=== PATIENT | female | born 1960 | race Caucasian/White ===

== ENCOUNTER 2023-08-10 21:56 | Outpatient (REF) | payer MEDICARE, SELFPAY ==
[2023-08-14 09:08] LABS: Age Gdln ACOG Testing Note (.); HPV Aptima Negative (Negative); IGP, Aptima HPV, rfx 16/18,45 Note (.)
== END 2023-08-10 21:57 | disposition home or self-care (01) ==
LOC: LAB 21:56
PROVIDERS: PCP Family Medicine; Visit Provider Family Medicine
DX: Z01.419 Encounter for gynecological examination (general) (routine) without abnormal findings (principal)
CPT/HCPCS: 87624; G0145

== ENCOUNTER 2024-12-08 09:44 | Outpatient (OUT) | payer MEDICARE, SELFPAY ==
--- NOTE | 2024-12-08 | MM_ITS ---
Patient Name: ZELALEM CAMPBELL MR#: [id number] : 1960 Exam Date: 12/08/2024 Ordering Doctor: DR CLIVE RINCON . RADIOLOGY REPORT PROCEDURE: MM TOMOSYNTHESIS SCREENING BI COMPARISON: MG MAMM SCREEN RUCHI W CAD, 04/25/2019. MG MAMM RUCHI SCRN W CAD DIG, 12/24/2015. INDICATIONS: BREAST CANCER SCREENING Calculator Name NCI Breast Cancer Risk Assessment Tool 5 Year Breast Cancer Risk 1.70% Lifetime Breast Cancer Risk 6.10% Personal Breast Cancer No Personal Ovarian Cancer No Treatments None Family Cancers None LOCATION: [facility] BREAST COMPOSITION: There are scattered areas of fibroglandular density. FINDINGS: DIAGNOSTIC CATEGORY 1--NEGATIVE. RIGHT BREAST: No significant suspicious finding. LEFT BREAST: No significant suspicious finding. RECOMMENDATIONS: ROUTINE MAMMOGRAM AND CLINICAL EVALUATION IN 12 MONTHS. PLEASE NOTE: A NORMAL MAMMOGRAM DOES NOT EXCLUDE THE POSSIBILITY OF BREAST CANCER. A CLINICALLY SUSPICIOUS PALPABLE LUMP SHOULD BE BIOPSIED. Dictated by: Leo Bro DO on 12/15/2024 at 13:57 Approved by: Leo Bro DO on 12/15/2024 at 14:00
--- OUTSIDE RECORDS SUMMARY | 2024-12-08 09:56 | XMS_ITS | CCD ---
Author Organization [facility] Inform ion Partnership [facility] Care Team Providers Care Heel Sander Name Role Phone DR CLIVE RINCON Attending Unavailable MCKENZIE, DR CLIVE Phipps Consulting Unavailable DR CLIVE RINCON Primary Care Unavailable DR CLIVE RINCON Admitting CLIVE Quarles Attending Unavailable CLIVE RINCON Attending Unavailable MCKENZIE, CLIVE Attending Unavailable Clive Rincon MD Primary Care Provider [phone] Allergies Allergy Classification Reported Allergen(s) Allergy Type Date of Onset Reaction(s) Facility (3 sources) Lisinopril Propensity to adverse reactions 4 [facility] Medications Current Medications Medication Drug Class(es) Dates Sig (Normalized) Sig (Original) hydroCHLOROthiazide 25 mg oral tablet (4 sources) Thiazide Diuretic Start: take 1 tablet by mouth once daily hydroCHLOROthiazide (HYDRODiuril) 25 MG tablet Indications: Essential hypertension, benign (CMS/HCC) TAKE 1 TABLET BY MOUTH DAILY 90 tablet 2 03/08/2024 Active Start: 01-05-2024 Hydrochlorothi azide Active MG PO January 05, 2024 12:00am losartan potassium 50 mg oral tablet (4 sources) Angiotensin 2 Receptor Helen Start: 06-08-2024 take 1 tablet by mouth in the morning losartan (Cozaar) 50 MG tablet Indications: Essential hypertension, benign (CMS/HCC) TAKE 1 TABLET BY MOUTH IN THE MORNING 90 tablet 3 06/08/2024 Active Start: 01-05-2024 Losartan Activ e MG PO January 05, 2024 12:00am Problems Problem Classification Problem Date Documented Da te Episodic/Chronic Anxiety disorders (5 sources) Generalized anxiety disorder; Translations: [Generalized anxiety disorder] Onset: 07-13-2023 07-13-2023 Chronic Disorders of lipid metabolism (5 sources) Dyslipidemia; Translations: [Hyperlipidemia, unspecified] Onset: 07-13-2023 07-13-2023 Chronic Essential hypertension (6 sources) Hypertensive disorder; Translations: [Essential (primary) hypertension] Onset: 07-13-2023 01-05-2024 Chronic Other aftercare (5 sources) Long-term current use of drug therapy; Translations: [Other terminal carman (current) drug therapy] Onset: 07-13-2023 07-13-2023 Episodic Other nutritional; endocrine; and metabolic disorders (1 source) Body mass index 30+ - obesity; Translations: [Obesity, unspecified] Onset: 07-13-2023 07-13-2023 Chronic Other nutritional; endocrine; and metabolic disorders (4 sources) Obesity caused by energy imbalance; Translations: [Class 1 obesity due to excess calories with serious comorbidity and body mass index (BMI) of 30.0 to 30.9 in adult] Onset: 07-13-2023 08-08-2024 Chronic Other screening for suspected conditions (not mental disorders or infectious disease) (2 sources) Patient encounter status; Translations: [Encounter for screening mammogram for malignant neoplasm of breast] 08-08-2024 Episodic Results Test Name Value Interpretation Reference Range Facil ity CBC AUTO DIFFon 12-09-2021 BASO # 0.0 103/ul Normal 0.0-0.1 [facility] Comment on above: Performed By: #### C BC #### [facility] [address] [address] [address] Leah Cross Basophils/100 WBC (Bld) 0.6 % Normal 0.2-2.0 [facility] Comment on above: Performed By: #### C BC #### [facility] [address] [address] [address] Leah Cross EO # 0.1 103/ul Normal 0.0-0.7 [facility] Comment on above: Performed By: #### C BC #### [facility] [address] [address] [address] Leah Cross Eosinophils/100 WBC (Bld) 1.1 % Normal 0.9-7.0 [facility] Comment on above: Performed By: #### C BC #### [facility] [address] [place] [address] Dr. Leah Cross Erythrocyte distribution width (RBC) [Ratio] 12.2 % Normal 11.0-15.0 [facility] Comment on above: Performed By: #### C BC #### [facility] [address] [place] [address] Dr. Leah Cross Hematocrit (Bld) [Volume fraction] 44.8 % Normal 36.0-48.0 [facility] Comment on above: Performed By: #### C BC #### [facility] [address] [place] [address] Dr. Leah Cross Hemoglobin (Bld) [Mass/Vol] 14.6 g/dL Normal 12.0-16.0 [facility] Comment on above: Performed By: #### C BC #### [facility] [address] [place] [address] Dr. Leah Cross IG # 0.02 10e3/ul Normal 0.00-0.03 [facility] Comment on above: Performed By: #### C BC #### [facility] [address] [place] [address] Dr. Leah Cross IG % 0.3 % Normal 0.0-0.5 [facility] Comment on above: Performed By: #### C BC #### [facility] [address] [place] [address] Dr. Leah Cross LYMPH # 2.5 103/ul Normal 1.2-3.8 [facility] Comment on above: Performed By: #### C BC #### [facility] [address] [place] [address] Dr. Leah Cross Lymphocytes/100 WBC (Bld) 35.2 % Normal 20.5-60.0 [facility] Comment on above: Performed By: #### C BC #### [facility] [address] [place] [address] Dr. Leah Cross MANUAL DIFF REQ NO Normal [facility] Comment on above: Performed By: #### C BC #### [facility] [address] [place] [address] Dr. Leah Cross MCH (RBC) [Entitic mass] 28.1 pg Normal 26.7-34.0 [facility] Comment on above: Performed By: #### C BC #### [facility] [address] [place] [address] Dr. Leah Cross MCHC (RBC) [Mass/Vol] 32.6 g/dL Normal 29.9-35.2 [facility] Comment on above: Performed By: #### C BC #### [facility] [address] [place] [address] Dr. Leah Cross MCV (RBC) [Entitic vol] 86.2 fL Normal 81.0-99.0 [facility] Comment on above: Performed By: #### C BC #### [facility] [address] [place] [address] Dr. Leah Cross MONO # 0.7 103/ul Normal 0.3-0.8 [facility] Comment on above: Performed By: #### C BC #### [facility] [address] [place] [address] Dr. Leah Cross Monocytes/100 WBC (Bld) 9.3 % Normal 1.7-12.0 [facility] Comment on above: Performed By: #### C BC #### [facility] [address] [place] [address] Dr. Leah Cross NEUT # 3.8 103/ul Normal 1.4-6.5 [facility] Comment on above: Performed By: #### C BC #### [facility] [address] [place] [address] Dr. Leah Cross Neutrophils/100 WBC (Bld) 53.5 % Normal 43.0-75.0 [facility] Comment on above: Performed By: #### C BC #### [facility] [address] [place] [address] Dr. Leah Cross Platelet mean volume (Bld) [Entitic vol] 9.6 fL Normal 9.5-13.5 [facility] Comment on above: Performed By: #### C BC #### [facility] [address] [place] [address] Dr. Leah Cross PLT 350 103/ul Normal 150-450 [facility] Comment on above: Performed By: #### C BC #### [facility] [address] [place] [address] Dr. Leah Cross RBC 5.20 106/ul Normal 4.20-5.40 [facility] Comment on above: Performed By: #### C BC #### [facility] [address] [address] [address] Leah Cross WBC 7.0 103/ul Normal 4.0-11.0 [facility] Comment on above: Performed By: #### C BC #### [facility] [address] [place] [address] Dr. Leah Cross GLYCOHEMOGLOBIN A1Con 2021 ADA RECOMMENDATION SEE BELOW Normal [facility] Comment on above: Result Comment: ADA RECOMMENDED LIMIT 4.0 - 6.0 ADA THERAPEUTIC TARGET < 7.0 ACTION SUGGESTED > 7.0 Performed By: #### A 1C #### [facility] [address] [place] [address] Dr. Leah Cross Glucose [Mass/Vol] 114 mg/dL Normal [facility] Comment on above: Performed By: #### A 1C #### [facility] [address] [place] [address] Dr. Leah Cross HbA1c (Bld) [Mass fraction] 5.6 % Normal 4.5-6.2 [facility] Comment on above: Performed By: #### A 1C #### [facility] [address] [place] [address] Dr. Leah Cross LIPID PROFILEon 12-09-2021 CHOL-HDL RATIO NORM SEE BELOW Normal [facility] Comment on above: Result Comment: 3.3 - 4.4 LOW RISK 4.4 - 7.1 AVERAGE RISK 7.1 - 11.0 MODERATE RISK >11.0 HIGH RISK Performed By: #### L IVER, LIPID, BMP, TSH #### [facility] [address] [place] [address] Dr. Leah Cross Cholesterol [Mass/Vol] 212 mg/dL Critically high <=200 [facility] Comment on above: Performed By: #### L IVER, LIPID, BMP, TSH #### [facility] [address] [address] [address] Leah Cross Cholesterol in HDL [Mass/Vol] 43 mg/dL Normal 40-60 [facility] Comment on above: Performed By: #### L IVER, LIPID, BMP, TSH #### [facility] [address] [address] [address] Leah Cross Cholesterol in LDL [Mass/Vol] 125.4 mg/dL Normal [facility] Comment on above: Performed By: #### L IVER, LIPID, BMP, TSH #### [facility] [address] [address] [address] Leah Cross Cholesterol.total/Cho lesterol in HDL [Mass ratio] 4.9 {ratio} Normal [facility] Comment on above: Performed By: #### L IVER, LIPID, BMP, TSH #### [facility] [address] [address] [address] Leah Cross HDL NORMAL > or = 60 mg/dl - LOW CARDIOVASCULAR RISK <40 mg/dl - HIGH CARDIOVASCULAR RISK Normal [facility] Comment on above: Performed By: #### L IVER, LIPID, BMP, TSH #### [facility] [address] [address] [address] Leah Cross LDL CALC NORMAL SEE BELOW Normal [facility] Comment on above: Result Comment: <100 mg/dl OPTIMAL 100 - 129 mg/dl NEAR OR ABOVE OPTIMAL 130 - 159 mg/dl BORDERLINE HIGH 160 - 189 mg/dl HIGH >190 mg/dl VERY HIGH Performed By: #### L IVER, LIPID, BMP, TSH #### [facility] [address] [address] [address] Leah Cross Triglyceride [Mass/Vol] 218 mg/dL Critically high <=150 [facility] Comment on above: Performed By: #### L IVER, LIPID, BMP, TSH #### [facility] [address] [address] [address] Leah Cross VLDL CALC 43.6 mg/dL Normal [facility] Comment on above: Performed By: #### L IVER, LIPID, BMP, TSH #### [facility] [address] [place] [address] Dr. Leah Cross LIVER PROFILEon 12-09-2021 Albumin [Mass/Vol] 3.6 g/dL Normal 3.4-5.0 [facility] Comment on above: Performed By: #### L IVER, LIPID, BMP, TSH #### [facility] [address] [place] [address] Dr. Leah Cross Albumin/Globulin [Mass ratio] 0.8 {ratio} Normal [facility] Comment on above: Performed By: #### L IVER, LIPID, BMP, TSH #### [facility] [address] [place] [address] Dr. Leah Cross ALP [Catalytic activity/Vol] 69 U/L Normal 46-116 [facility] Comment on above: Performed By: #### L IVER, LIPID, BMP, TSH #### [facility] [address] [place] [address] Dr. Leah Cross ALT [Catalytic activity/Vol] 25 U/L Normal 14-59 [facility] Comment on above: Performed By: #### L IVER, LIPID, BMP, TSH #### [facility] [address] [place] [address] Dr. Leah Cross AST [Catalytic activity/Vol] 26 U/L Normal 15-37 [facility] Comment on above: Performed By: #### L IVER, LIPID, BMP, TSH #### [facility] [address] [place] [address] Dr. Leah Cross BILI, CONJUGATED 0.1 mg/dL Normal 0.0-0.2 [facility] Comment on above: Performed By: #### L IVER, LIPID, BMP, TSH #### [facility] [address] [place] [address] Dr. Leah Cross Bilirubin [Mass/Vol] 0.4 mg/dL Normal 0.2-1.0 [facility] Comment on above: Performed By: #### L IVER, LIPID, BMP, TSH #### [facility] [address] [place] [address] Dr. Leah Cross Globulin (S) [Mass/Vol] 4.4 g/dL Normal [facility] Comment on above: Performed By: #### L IVER, LIPID, BMP, TSH #### [facility] [address] [place] [address] Dr. Leah Cross Protein [Mass/Vol] 8.0 g/dL Normal 6.4-8.2 [facility] Comment on above: Performed By: #### L IVER, LIPID, BMP, TSH #### [facility] [address] [place] [address] Dr. Leah Cross PROF CHEM 8 (BAS METB)on Anion gap [Moles/Vol] 8.7 mmol/L Normal [facility] Comment on above: Performed By: #### L IVER, LIPID, BMP, TSH #### [facility] [address] [place] [address] Dr. Leah Cross Calcium [Mass/Vol] 9.3 mg/dL Normal 8.5-10.1 [facility] Comment on above: Performed By: #### L IVER, LIPID, BMP, TSH #### [facility] [address] [place] [address] Dr. Leah Cross Chloride [Moles/Vol] 97 mmol/L Critically low 98-107 [facility] Comment on above: Performed By: #### L IVER, LIPID, BMP, TSH #### [facility] [address] [place] [address] Dr. Leah Cross CO2 [Moles/Vol] 33.9 mmol/L Critically high 21.0-32.0 [facility] Comment on above: Performed By: #### L IVER, LIPID, BMP, TSH #### [facility] [address] [place] [address] Dr. Leah Cross Creatinine [Mass/Vol] 0.85 mg/dL Normal 0.55-1.02 [facility] Comment on above: Performed By: #### L IVER, LIPID, BMP, TSH #### [facility] [address] [address] [address] Leah Cross EGFR-AF GABONESE >60 Normal >=60 [facility] Comment on above: Performed By: #### L IVER, LIPID, BMP, TSH #### [facility] [address] [address] [address] Leah Cross EGFR-NON AF GABONESE >60 Normal >=60 [facility] Comment on above: Performed By: #### L IVER, LIPID, BMP, TSH #### [facility] [address] [address] [address] Leah Cross Glucose [Mass/Vol] 98 mg/dL Normal 74-106 [facility] Comment on above: Performed By: #### L IVER, LIPID, BMP, TSH #### [facility] [address] [place] [address] Dr. Leah Cross Potassium [Moles/Vol] 3.6 mmol/L Normal 3.5-5.1 [facility] Comment on above: Performed By: #### L IVER, LIPID, BMP, TSH #### [facility] [address] [address] [address] Leah Cross Sodium [Moles/Vol] 136 mmol/L Normal 136-145 [facility] Comment on above: Performed By: #### L IVER, LIPID, BMP, TSH #### [facility] [address] [address] [address] Leah Cross Urea nitrogen [Mass/Vol] 19.0 mg/dL Critically high 7.0-18.0 [facility] Comment on above: Performed By: #### L IVER, LIPID, BMP, TSH #### [facility] [address] [place] [address] Dr. Leah Cross Urea nitrogen/Creatinine [Mass ratio] 22.4 mg/mg Normal [facility] Comment on above: Performed By: #### L IVER, LIPID, BMP, TSH #### [facility] [address] [place] [address] Dr. Leah Cross TSHon 12-09-2021 TSH 0.984 uIU/mL Normal 0.358-3.740 [facility] Comment on above: Performed By: #### L IVER, LIPID, BMP, TSH #### [facility] [address] [address] [address] Leah Cross Vital Signs Date Time Vital Sign Value Performing Clinician Facility 08-08-2024 09:08-0500 Body height 167.6 cm Clive Rincon MD Work Phone: [facility] 08-08-2024 09:08-0500 Body mass index (BMI) [Ratio] 30.02 kg/m2 Clive Rincon MD Work Phone: [facility] 08-08-2024 09:08-0500 Body temperature 97.11 [degF] Clive Rincon MD Work Phone: [facility] 08-08-2024 09:08-0500 Body weight 84.37 kg Clive Rincon MD Work Phone: [facility] 08-08-2024 09:08-0500 Diastolic blood pressure 60 mm[Hg] Clive Rincon MD Work Phone: [facility] 08-08-2024 09:08-0500 Heart rate 96 /min Clive Rincon MD Work Phone: [facility] 08-08-2024 09:08-0500 Respiratory rate 20 /min Clive Rincon MD Work Phone: [facility] 08-08-2024 09:08-0500 SaO2% (BldA) [Mass fraction] 92 % Clive Rincon MD Work Phone: [facility] 08-08-2024 09:08-0500 Systolic blood pressure 106 mm[Hg] Clive Rincon MD Work Phone: [facility] 01-05-2024 18:30-0400 Body height 167.64 cm [facility] 01-05-2024 18:30-0400 Body mass index (BMI) [Ratio] 29 kg/m2 [facility] 01-05-2024 18:30-0400 Body temperature 98.1 [degF] [facility] 01-05-2024 18:30-0400 Body weight 81.64 kg [facility] 01-05-2024 18:30-0400 Diastolic blood pressure 100 mm[Hg] [facility] 01-05-2024 18:30-0400 Heart rate 97 /min [facility] 01-05-2024 18:30-0400 Respiratory rate 16 /min [facility] 01-05-2024 18:30-0400 SaO2% (BldA) [Mass fraction] 96 % [facility] 01-05-2024 18:30-0400 Systolic blood pressure 154 mm[Hg] [facility] Encounters Encounter Date Encounter Type Care Provider Facility Start: 08-08-2024 End: 08-08-2024 Muna Rincon MD Work Phone: [facility] Start: 08-08-2024 End: 08-08-2024 Muna Rincon MD Work Phone: [facility] Start: 08-08-2024 End: 08-08-2024 Office outpatient visit 15 minutes Clive Ricnon MD Work Phone: [facility] Comment on above: Essential hypertensi on, benign (CMS/HCC) (Primary Dx); YECENIA (generalized anxiety disorder) (CMS/HCC); Class 1 obesity due to excess calories with serious comorbidity and body mass index (BMI) of 30.0 to 30.9 in adult; Dyslipidemia (CMS/HCC); Encounter for long-term (current) use of medications; Breast cancer screening by mammogram Start: 08-08-2024 End: 08-08-2024 ambulatory CLIVE RINCON Not Available Start: 02-03-2024 End: 02-03-2024 ambulatory CLIVE RINCON Not Available Start: 01-05-2024 End: 01-05-2024 ambulatory [facility] Work Phone: Start: 01-05-2024 End: 01-05-2024 Patient encounter procedure [facility] Work Phone: Start: 08-10-2023 Manual pelvic examination Clive Rincon MD Work Phone: [facility] Start: 08-10-2023 End: 08-10-2023 ambulatory CLIVE RINCON Not Available Start: 12-11-2021 Encounter for genera l adult medical examination without abnormal findings DR CLIVE RINCON [facility] Start: 12-09-2021 End: 12-10-[address] CLIVE RINCON Facility:[facility] Start: 12-09-2021 End: 12-10-2021 Encounter for general adult medical examination without abnormal findings DR CLIVE RINCON Facility:[facility] Procedures Date Procedure Procedure Detail Performing Clinician Start: 07-26-2023 Mammography Clive garay MD Work Phone: Plan of Treatment Date Care Activity Detail Author Start: 07-19-2026 Screening for malign ant neoplasm of colon [facility] Start: 02-06-2025 End: 02-06-2025 Patient encounter procedure 02/06/2025 9:00 AM EDT Office Visit [facility] [address] [place] [id number] Clive Rincon MD [address] [place] [id number] [facility] Start: 08-08-2024 End: 08-08-2025 Basic metabolic 1998 panel - Serum or Plasma Basic metabolic panel Lab Routine Essential hypertension, benign (CMS/HCC) Expected: 08/08/2024 (Approximate), Expires: 08/08/2025 [facility] Work Phone: Comment on above: Expected: 08/08/2024 (Approximate), Expires: 08/08/2025 Start: 08-08-2024 End: 08-08-2025 CBC W Auto Differential panel - Blood CBC and differential Lab Routine Encounter for long-term (current) use of medications Expected: 08/08/2024 (Approximate), Expires: 08/08/2025 [facility] Comment on above: Expected: 08/08/2024 (Approximate), Expires: 08/08/2025 Start: 08-08-2024 End: 08-08-2025 Hepatic function 2000 panel - Serum or Plasma Hepatic function panel Lab Routine Encounter for long-term (current) use of medications Expected: 08/08/2024 (Approximate), Expires: 08/08/2025 [facility] Comment on above: Expected: 08/08/2024 (Approximate), Expires: 08/08/2025 Start: 08-08-2024 End: 08-08-2025 Lipid 1996 panel - Serum or Plasma Lipid panel Lab Routine Dyslipidemia (CMS/HCC) Expected: 08/08/2024 (Approximate), Expires: 08/08/2025 [facility] Comment on above: Expected: 08/08/2024 (Approximate), Expires: 08/08/2025 Start: 08-08-2024 End: 10-06-2025 MG Breast - bilateral Screening Bilateral screening mammogram Imaging Routine Breast cancer screening by mammogram Expected: 08/08/2024, Expires: 10/06/2025 [facility] Comment on above: Expected: 08/08/2024 , Expires: 10/06/2025 Start: 08-08-2024 End: 08-08-2025 Thyrotropin [Units/volume] in Serum or Plasma TSH Lab Routine Class 1 obesity due to excess calories with serious comorbidity and body mass index (BMI) of 30.0 to 30.9 in adult Expected: 08/08/2024 (Approximate), Expires: 08/08/2025 [facility] Comment on above: Expected: 08/08/2024 (Approximate), Expires: 08/08/2025 Start: 08-08-2024 End: 08-08-2024 Patient encounter procedure 08/08/2024 9:00 AM EST Office Visit [facility] [address] [place] [id number] Clive Rincon MD [address] [place] [id number] Arrived [facility] Comment on above: Arrived Start: 07-26-2024 Screening for malign ant neoplasm of breast Mammogram [facility] Start: 02-20-2024 Influenza vaccination Influenza Vacc ine (#1) [facility] Start: 2023 Pneumococcal Vaccine : 65+ Years (1 of 1 - PCV) Pneumococcal Vaccine: 65+ Years (1 of 1 - PCV) [facility] Start: 1960 Medicare Annual Wellness (AWV) Medicare Annual Wellness (AWV) [facility] Start: 1960 Screening for malign ant neoplasm of colon [facility] Payers Date Payer Category Payer Medicaid [employer] MED[employer]ARE A DVANTAGE [id number] 2023 Private Health Insurance [id number] 1961 Unknown [id number] 1960 Unknown [id number] 1960 Unknown [id number] 1960 Unknown [id number] 1960 Unknown [id number] Social History Date Type Detail Facility Tobacco smoking stat us KYIS Unknown if ever smoked [facility] Work Phone: Start: 1960 Sex Assigned At Female [facility] Start: 07-13-2023 Tobacco smoking status NHIS Never smoked tobacco [facility] Start: 07-13-2023 Tobacco use and exposure Smokeless tobacco non-user [facility] Start: 07-06-2023 End: 08-08-2024 History of Social function [facility] Start: 07-06-2023 End: 08-08-2024 [id number] Health Literacy [facility] How often do you nee d to have someone help you when you read instructions, pamphlets, or other written material from your doctor or pharmacy [SILS] Never [facility] Within the last year , have you been afraid of your partner or ex-partner? No [facility] Are you now , , , , never or living with a partner? [facility] How often to you hav e a drink containing alcohol? Never [facility] Do you feel stress - tense, restless, nervous, or anxious, or unable to sleep at night because your mind is troubled all the time - these days [OSQ] Only a little [facility] (I/We) worried wheth er (my/our) food would run out before (I/we) got money to buy more. Never true [facility] Start: 08-03-2023 Gender identity Identifies as female gender (finding) [facility] Start: 08-03-2023 Sexual orientation Heterosexual (finding) [facility] History of Present illness Narrative 08-08-2024 Clive Rincon MD - 08/08/2024 9:27 AM Kelby Rincon MD - 08/08/2024 9:26 AM Kelby Rincon MD - 08/08/2024 9:26 AM Kelby Rincon MD - 08/08/2024 9:00 AM EST Note Date & Type Note Facility 08-08-2024 History of Presen t illness Narrative Associated Problem(s): YECENIA (generalized anxiety disorder) (CMS/HCC) Doing well without medication and monitor. Associated Problem(s): Essential hypertension, benign (CMS/HCC) BP controlled and monitor PRN. Associated Problem(s): Class 1 obesity due to excess calories with serious comorbidity and body mass index (BMI) of 30.0 to 30.9 in adult Weight loss indicated. Images from the original note were not included. Subjective Patient ID: Cassie Meng is a 64 y.o. female who presents for Follow-up (6m). Follow up HTN and anxiety. Checking BP PRN and typically controlled. BP normal today. Taking medication daily and tolerating without side effects. Anxiety stable. Not as stressed out or overwhelmed. Not as nervous or worry as much. Not as walker or irritable. Weight up 5 pounds in past year. Not as active at work and no regular exercise or activity. Due for labs and mammogram. Review of Systems Respiratory: Negative for cough, shortness of breath and wheezing. Cardiovascular: Negative for chest pain and palpitations. Gastrointestinal: Negative for abdominal pain, diarrhea, nausea and vomiting. Genitourinary: Negative for dysuria. Objective Physical Exam Constitutional: General: She is not in acute distress. Appearance: Normal appearance. HENT: Head: Normocephalic. Right Ear: Tympanic membrane normal. Left Ear: Tympanic membrane normal. Eyes: Extraocular Movements: Extraocular movements intact. Pupils: Pupils are equal, round, and reactive to light. Cardiovascular: Rate and Rhythm: Normal rate and regular rhythm. Heart sounds: No murmur heard. No friction rub. No gallop. Pulmonary: Effort: Pulmonary effort is normal. Breath sounds: Normal breath sounds. No wheezing, rhonchi or rales. Abdominal: General: Bowel sounds are normal. There is no distension. Palpations: Abdomen is soft. Tenderness: There is no abdominal tenderness. There is no guarding or rebound. Musculoskeletal: Cervical back: Neck supple. Right lower leg: No edema. Left lower leg: No edema. Neurological: Mental Status: She is alert. Assessment/Plan Problem List Items Addressed This Visit Essential hypertension, benign (CMS/HCC) - Primary BP controlled and monitor PRN. Relevant Orders Basic metabolic panel Dyslipidemia (CMS/HCC) Relevant Orders Lipid panel YECENIA (generalized anxiety disorder) (CMS/HCC) Doing well without medication and monitor. Encounter for long-term (current) use of medications Relevant Orders CBC and differential Hepatic function panel Class 1 obesity due to excess calories with serious comorbidity and body mass index (BMI) of 30.0 to 30.9 in adult Weight loss indicated. Relevant Orders TSH Other Visit Diagnoses Breast cancer screening by mammogram Relevant Orders Bilateral screening mammogram documented in this encounter [facility] Evaluation note Note Date & Type Note Facility Evaluation note No assessment information availa [facility] Work Phone: Evaluation note Note Date & Type Note Facility Evaluation note Diagnosis Essential hypertension, benign (CMS/HCC)- Primary Essential hypertension, benign YECENIA (generalized anxiety disorder) (CMS/HCC) Generalized anxiety disorder Dyslipidemia (CMS/HCC) Other and unspecified hyperlipidemia Encounter for long-term (current) use of medications Encounter for long-term (current) use of other medications Obesity (BMI 30-39.9) Breast cancer screening by mammogram Essential hypertension, benign (CMS/HCC)- Primary Essential hypertension, benign Encounter for cervical Pap smear with pelvic exam Essential hypertension, benign (CMS/HCC)- Primary Essential hypertension, benign YECENIA (generalized anxiety disorder) (CMS/HCC) Generalized anxiety disorder Essential hypertension, benign (CMS/HCC)- Primary Essential hypertension, benign YECENIA (generalized anxiety disorder) (CMS/HCC) Generalized anxiety disorder Class 1 obesity due to excess calories with serious comorbidity and body mass index (BMI) of 30.0 to 30.9 in adult Dyslipidemia (CMS/HCC) Other and unspecified hyperlipidemia Encounter for long-term (current) use of medications Encounter for long-term (current) use of other medications Breast cancer screening by mammogram documented in this encounter [facility] Summary Purpose Family History No Family History Records FoundNo Family History Records Found Advance Directives Advance Directive Response Recorded Date/ Time Advance Directives No January 04 6:21pm Chief Complaint and Reason for Visit Chief Complaint Cyst/abscess on back /shoulder Additional Source Comments INFORMATION SOURCE (unrecogn ized section and content) DATE CREATED AUTHOR 01/17/2022 [facility] DATE CREATED AUTHOR 'S ORGANIZ ATION 08/09/2024 [facility] Care Teams (unrecognized sec tion and content) Team Status: Active Member Role Status Dates Clive Rincon MD Primary Care Provider Active Team Status: Inactive Member Role Status Dates Clive Rincon MD Primary Care Provider Active S tart: January 05, 2024 End: January 05, 2024 Fina Wilkins APRN Attending Provider Active Start: January 05, 2024 End: January 05, 2024 Heel Sander Relationship Specialty Start Date End Date Clive Rincon MD [address] [place] [address] PCP - General Family Medicine 08/10/23 Heel Sander Relationship Specialty Start Date End Date Clive Rincon MD [address] [place] [address] PCP - General Family Medicine 08/10/23 Goals (unrecognized section and content) Goals may be documented in a n alternate section Reason for Visit (unrecogniz ed section and content) Reason Comments Follow-up 6m FOR RECORDS PERTAINING TO PATIENTS WHO ARE OR HAVE BEEN ENROLLED IN A CHEMICAL DEPENDENCY/SUBSTANCEABUSE PROGRAM, SOME INFORMATION MAY BE OMITTED. This clinical summary was aggregated from multiple sources. Caution should be exercised in using it in the provision of clinical care. This summary normalizes information from multiple sources, and as a consequence, information in this document may materially change the coding, format and clinical context of patient data. In addition, data may be omitted in some cases. CLINICAL DECISIONS SHOULD BE BASED ON THE PRIMARY CLINICAL RECORDS. [facility] [employer] [facility]. provides no warranty or guarantee of the accuracy or completeness of information in this document.
[2024-12-08 10:37] LABS: Basophils Percent Auto 0.5 % (0.2-2.0); Eosinophils Absolute Auto 0.1 10^3/uL (0.0-0.7); Eosinophils Percent Auto 1.5 % (0.9-7.0); Hematocrit 42.2 % (36.0-48.0); Hemoglobin 13.9 g/dL (12.0-16.0); Immature Granulocytes Abs Auto 0.02 10^3/uL (0.00-0.03); Immature Granulocytes Pct Auto 0.3 % (0.0-0.5); Lymphocytes Absolute Auto 1.8 10^3/uL (1.2-3.8); Lymphocytes Percent Auto 23.5 % (20.5-60.0); Mean Corpuscular HGB Conc 32.9 g/dL (29.9-35.2); Mean Corpuscular Volume 82.1 fL (81.0-99.0); Mean Platelet Volume 9.1 fL (9.5-13.5); Monocytes Absolute Auto 0.7 10^3/uL (0.3-0.8); Monocytes Percent Auto 8.5 % (1.7-12.0); Neutrophils Absolute Auto 5.1 10^3/uL (1.4-6.5); Neutrophils Percent Auto 65.7 % (43.0-75.0); Platelet Count 431 10^3/uL (150-450); Red Blood Count 5.14 10^6/uL (4.20-5.40); Red Cell Distribution Width 13.4 % (11.0-15.0); White Blood Count 7.8 10^3/uL (4.0-11.0)
[2024-12-08 11:06] LABS: Alanine Aminotransferase 22 U/L (14-59); Albumin Globulin Ratio 0.8; Albumin Level 3.6 g/dL (3.4-5.0); Alkaline Phosphatase 75 U/L (46-116); Anion Gap 8.8; Aspartate Amino Transferase 20 U/L (15-37); Bilirubin Direct 0.1 mg/dL (0.0-0.2); Bilirubin Total 0.4 mg/dL (0.2-1.0); Calcium 9.4 mg/dL (8.5-10.1); Carbon Dioxide 34.4 mmol/L (21.0-32.0); Chloride 98 mmol/L (98-107); Chol HDL Ratio 3.9; Cholesterol 226 mg/dL (<=200); Estimated GFR (African America >60 (>=60 mL/min/1.73m^2); Estimated GFR (Non-African Ame >60 (>=60 mL/min/1.73m^2); Globulin 4.6 g/dL; Glucose 122 mg/dL (74-106); HDL Cholesterol 58 mg/dL (40-60); Potassium 3.2 mmol/L (3.5-5.1); Sodium 138 mmol/L (136-145); Thyroid Stimulating Hormone 1.659 uIU/mL (0.358-3.740); Total Protein 8.2 g/dL (6.4-8.2); Triglycerides 156 mg/dL (<=150); VLDL CHOLESTEROL 31.2 mg/dL
== END 2024-12-08 09:45 | disposition home or self-care (01) ==
LOC: MAMMO 09:48
PROVIDERS: PCP Family Medicine; Visit Provider Family Medicine
DX: Z12.31 Encounter for screening mammogram for malignant neoplasm of breast (principal); E78.5 Hyperlipidemia, unspecified; I10 Essential (primary) hypertension; E66.811 Obesity, class 1; E66.09 Other obesity due to excess calories; Z68.30 Body mass index [BMI] 30.0-30.9, adult; Z79.899 Other long term (current) drug therapy
CPT/HCPCS: 36415; 77063; 77067; 80048; 80061; 80076; 84443; 85025

== ENCOUNTER 2024-12-08 10:05 | Outpatient (OUT) | payer MEDICARE, SELFPAY ==
--- OUTSIDE RECORDS SUMMARY | 2024-12-11 09:33 | XMS_ITS | Encounter Summary ---
Author Organization [facility] Address [address] [place] [address] Care Team Providers Care Toilet Products Molder Name Role Phone Napoleon Alegre MD Primary Care Provider [phone] Encounter Details Date Type Department Care Team (Late st Contact Info) Description 12/08/2024 Results Follow-Up [facility] [address] [place] [address] Napoleon Alegre MD [address] [address] Prediabetes (Primary Dx); Hypokalemia Social History Tobacco Use Types Packs/Day Years Used Date Smoking Tobacco: Never Smokeless Tobacco: Never B1300 Health Literacy Answer Date Recor ded How often do you need to hav e someone help you when you read instructions, pamphlets, or other written material from your doctor or pharmacy? Never 08/08/2024 Humiliation, Afraid, Rape, and Kick questionnair e Answer Date Recorded Within the last year, have y ou been afraid of your partner or ex-partner? No 07/06/2023 Within the last year, have y ou been humiliated or emotionally abused in other ways by your partner or ex-partner? No Within the last year, have y ou been kicked, hit, slapped, or otherwise physically hurt by your partner or ex-partner? No 07/06/2023 Within the last year, have y ou been raped or forced to have any kind of sexual activity by your partner or ex-partner? No 07/06/2023 Social Connection and Isolat ion Panel [NHANES] Answer Date Recorded In a typical week, how many times do you talk on the phone with family, friends, or neighbors? More than three times a week 08/08/2024 How often do you get togethe r with friends or relatives? More than three times a week 08/08/2024 How often do you attend chur or quaker services? More than 4 times per year 08/08/2024 Do you belong to any clubs o r organizations such as cheondoism groups, unions, fraternal or athletic groups, or school groups? No 08/08/2024 How often do you attend meet ings of the clubs or organizations you belong to? Never 08/08/2024 Are you , , di vorced, , never , or living with a partner? 08/08/2024 AUDIT-C Answer Date Recorded Q1: How often do you have a drink containing alcohol? Never 08/08/2024 Q2: How many drinks containi ng alcohol do you have on a typical day when you are drinking? Patient does not drink Q3: How often do you have si x or more drinks on one occasion? Never 08/08/2024 Overall Financial Resource Strain (CARDIA) Answe r Date Recorded How hard is it for you to pa y for the very basics like food, housing, medical care, and heating? Not hard at all 08/08/2024 [facility] - Occupational Stress Questionnaire Answer Date Recorded Do you feel stress - tense, restless, nervous, or anxious, or unable to sleep at night because your mind is troubled all the time - these days? Only a little 08/08/2024 Exercise Vital Sign Answer Date Recorde d On average, how many days pe r week do you engage in moderate to strenuous exercise (like a brisk walk)? 5 days 08/08/2024 On average, how many minutes do you engage in exercise at this level? 30 min 08/08/2024 Hunger Vital Sign Answer Date Recorded Within the past 12 months, y ou worried that your food would run out before you got the money to buy more. Never true 08/08/19 25 Within the past 12 months, t he food you bought just didn't last and you didn't have money to get more. Never true 08/08/2024 PRAPARE - Transportation Answer Date Re corded In the past 12 months, has l ack of transportation kept you from medical appointments or from getting medications? No 07/22 In the past 12 months, has l ack of transportation kept you from meetings, work, or from getting things needed for daily living? No 08/08/2024 Housing Stability Vital Sign Answer Gilbert e Recorded In the last 12 months, was t here a time when you were not able to pay the mortgage or rent on time? No 07/06/2023 In the last 12 months, how many places have you lived? 1 07/06/2023 In the last 12 months, was t here a time when you did not have a steady place to sleep or slept in a skilled nursing (including now)? No 07/06/2023 Housing Stability Vital Sign Answer Gilbert e Recorded In the last 12 months, was t here a time when you were not able to pay the mortgage or rent on time? No 08/08/2024 In the past 12 months, how m any times have you moved where you were living? 0 08/08/2024 At any time in the past 12 m [facility], were you homeless or living in a skilled nursing (including now)? No 08/08/2024 Comments Unknown Sex and Gender Information Value Date Recorded Sex Assigned at Female 08/03/2023 10:50 AM EST Legal Sex Female 7:04 PM EDT Gender Identity Female 08/03/2023 10:50 AM EST Sexual Orientation Straight 08/03/2023 10 :50 AM EST documented as of this encounter Plan of Treatment Upcoming Encounters Date Type Department Care Team (Late st Contact Info) Description 02/06/2025 9:00 AM EDT Office Visit [facility] [address] [place] [address] Napoleon Alegre MD [address] [place] [address] Scheduled Orders Name Type Priority Associated Diagnoses Orde r Schedule Hemoglobin A1c Lab Routine Prediabetes Expected: 12/08/2024 (Approximate), Expires: 12/08/2025 documented as of this encounter Visit Diagnoses Diagnosis Prediabetes- Primary Other abnormal glucose Hypokalemia Hypopotassemia documented in this encounter Care Teams Toilet Products Molder Relationship Specialty Start Date End Date Napoleon Alegre MD [address] [place] [address] PCP - General Family Medicine 08/10/23 documented as of this encounter
--- OUTSIDE RECORDS SUMMARY | 2024-12-11 09:33 | XMS_ITS | Clinical Summary ---
Author Organization [facility] Healthcare Address [address] [place] [address] Care Team Providers Care Wind Turbine Design Engineer Name Role Phone Napoleon Alegre MD Primary Care Provider [phone] Allergies Active Allergy Reactions Criticality Noted Date Comments Lisinopril 07/06/2023 Medications losartan (Cozaar) 50 MG tabletIndicati ons:Essential hypertension, benign TAKE 1 TABLET BY MOUTH IN THE MORNING 90 tablet 3 4 Active hydroCHLOROthi azide (HYDRODiuril) 25 MG tabletIndicati ons:Essential hypertension, benign TAKE 1 TABLET BY MOUTH DAILY 90 tablet 2 5 Active potassium chloride CR (K-Tab) 20 MEQ ER tabletIndicati ons:Hypokalemi a Take 1 tablet (20 mEq) by mouth Daily Do not crush, chew, or split. 30 tablet 5 5 Active hydroCHLOROthi azide (HYDRODiuril) 25 MG tabletIndicati ons:Essential hypertension, benign TAKE 1 TABLET BY MOUTH DAILY 90 tablet 2 4 12/05/19 25 Discontinued Active Problems Problem Noted Date Diagnosed Date Prediabetes 12/08/2024 Hypokalemia 12/08/2024 Encounter for cervical Pap smear with pelvic exa m 08/10/2023 Assessment & Plan (08/10/2023 2:30 PM EST): Will notify of results by mail or call with abnormals. Continue monthly self breast exams and yearly mammograms. Recommend balanced diet and regular aerobic activity 30 minutes per day 5-6 days per week. Activity reduces risk of osteoporosis. Ensure adequate calcium and Vit D intake, may need to supplement. Tetanus booster every 10 years. Cologuard normal last month. Avoid excessive sun exposure or tanning beds Essential hypertension, benign 07/13/2023 Assessment & Plan (08/08/2024 9:26 AM EST): BP controlled and monitor PRN. Assessment & Plan (02/03/2024 11:10 AM EDT): BP controlled and monitor PRN. Assessment & Plan (08/10/2023 2:30 PM EST): BP improved and monitor PRN. Assessment & Plan (07/13/2023 4:09 PM EST): BP elevated and increase cozaar. Monitor BP PRN. Dyslipidemia 07/13/2023 YECENIA (generalized anxiety disorder) 07/13/2023 Assessment & Plan (08/08/2024 9:27 AM EST): Doing well without medication and monitor. Assessment & Plan (02/03/2024 11:15 AM EDT): Continued stress but handling well without medication and monitor. Assessment & Plan (07/13/2023 4:09 PM EST): Increased stress but handling well without medication and monitor. Encounter for long-term (current) use of medicat ions 07/13/2023 Class 1 obesity due to exces s calories with serious comorbidity and body mass index (BMI) of 30.0 to 30.9 in adult 07/13/2023 Assessment & Plan (08/08/2024 9:26 AM EST): Weight loss indicated. Encounters Date Type Department Care Team Description 12/08/2024 Results Follow-Up [facility] [address] [place] [id number] Napoleon Alegre MD Prediabetes (Primary Dx); Hypokalemia 12/08/2024 Orders Only [facility] [address] [place] [address] Napoleon Alegre MD 12/08/2024 Clinisync Result Encounter [facility] External Department Unsolicited Napoleon Alegre MD 12/02/2024 Refill [facility] [address] [place] [address] Napoleon Alegre MD Essential hypertension, benign from Last 3 Months Family History Medical History Relation Name Comments Heart disease Father Heart disease Sister Relation Name Status Comments Father Sister Social History Tobacco Use Types Packs/Day Years Used Date Smoking Tobacco: Never Smokeless Tobacco: Never Tobacco Cessation:Counseling Given: Not Answered [id number] Health Literacy Answer Date Recor ded [...] week 08/08/2024 How often do you attend [facility] or restorationist services? More than 4 times per year 08/08/2024 Do you belong to any clubs o r organizations such as taoist groups, unions, fraternal or athletic groups, or [...] and heating? Not hard at all 08/08/2024 [facility] - Occupational Stress [...] place to sleep or slept in a half-way (including now)? No 07/06/2023 Housing Stability Vital Sign Answer Gilbert e Recorded In the last 12 months, was t here a time when you were not able to pay the mortgage or rent on time? No 08/08/2024 In the past 12 months, how m any times have you moved where you were living? 0 08/08/2024 At any time in the past 12 m [facility], were you homeless or living in a half-way (including now)? No 08/08/2024 Comments Unknown Sex and Gender Information Value Date Recorded Sex Assigned at Female 08/03/2023 10:50 AM EST Legal Sex Female 7:04 PM EDT Gender Identity Female 08/03/2023 10:50 AM EST Sexual Orientation Straight 08/03/2023 10 :50 AM EST Last Filed Vital Signs Vital Sign Reading Time Taken Comments Blood Pressure 106/60 08/08/2024 9:08 AM EST Pulse 96 08/08/2024 9:08 AM EST Temperature 36.2 C (97.1 F) 08/08/2024 9:08 AM EST Respiratory Rate 20 08/08/2024 9:08 AM EST Oxygen Saturation 92% 08/08/2024 9:08 AM EST Inhaled Oxygen Concentration - - Weight 84.4 kg (186 lb) 08/08/2024 9:08 AM EST Height 167.6 cm (5' 6 ) 08/08/2024 9:08 AM EST Body Mass Index 30.02 08/08/2024 9:08 AM EST Plan of Treatment Upcoming Encounters Date Type Department Care Team (Late st Contact Info) Description 02/06/2025 9:00 AM EDT Office Visit [facility] [address] [place] [address] Napoleon Alegre MD [address] [place] [address] Health Maintenance Due Date Last Done Comments CT Colonography 1960 Colonoscopy 1958 FIT 1960 FOBT 1960 Medicare Annual Wellness (AWV) 1960 Sigmoidoscopy 1960 Pneumococcal Vaccine: 65+ Ye ars (1 of 1 - PCV) 02/27/2008 Mammogram 07/26/2024 07/26/2023, 07/15/2023 Influenza Vaccine (Season Ended) 2025 Colorectal Cancer Screening 07/19/2026 FIT-DNA 07/19/2026 07/19/2023, 10/31/2019 Procedures Procedure Name Priority Date/Time Associated Diagnosis Comments ALL THYROID STIM HORMONE Routine 12/08/2024 10:25 AM EDT ALL LIPID PROFILE (FASTING) Routine 12/08/2024 10:25 AM EDT ALL BASIC METABOLIC PANEL Routine 12/08/2024 10:25 AM EDT [facility] LIVER PANEL Routine 12/08/2024 10:2 5 AM EDT ALL CBC WITH AUTO DIFF Routine 10:25 AM EDT BI MAMMOGRAM SCREENING TOMOSYNTHESIS BILATERAL Routine 07/15/2023 3:22 PM EST Breast cancer screening by mammogram from Last 3 Months or Most Recently Relevant to Health Maintenance Results * [facility] LIVER PANEL (12/08/2024 10:25 AM EDT) BILIRUBIN TOTAL 0.4 0.2 - 1.0 mg/dL [facility]H BILIRUBIN DIRECT 0.1 0.0 - 0.2 mg/dL [facility] ASPARTATE AMINO TRANSFERASE 20 15 - 37 U/L TBH ALANINE AMINOTRANSFERASE 22 14 - 59 U/L TBH ALKALINE PHOSPHATASE 75 46 - 116 U/L TB[facility] TOTAL PROTEIN 8.2 6.4 - 8.2 g/dL [facility] ALBUMIN LEVEL 3.6 3.4 - 5.0 g/dL [facility] GLOBULIN 4.6 g/dL [facility] ALBUMIN GLOBULIN RATIO 0.8 TBH 12/08/2024 10:2 5 AM EDT 12/08/2024 10:31 AM EDT Narrative CLINISYNC - 12/08/2024 11:09 AM EDT Napoleon ALEJANDROISYNHI Final Result Performing Organization Address [facility]/ZIP Co de Phone Number [facility] * ALL THYROID STIM HORMONE (12/08/2024 10:25 AM EDT) THYROID STIMULATING HORMONE 1.659 0.358 - 3.740 uIU/mL TB 12/08/2024 10:2 5 AM EDT 12/08/2024 10:31 AM EDT Narrative CLINISYNC - 12/08/2024 11:09 AM EDT Napoleon ALEJANDROISYNHI Final Result Performing Organization Address [facility] de Phone Number [facility] * (ABNORMAL) ALL LIPID PROFILE (FASTING) (12/08/2024 10:25 AM EDT) TRIGLYCERIDES 156(H) <=150 mg/dL TBH CHOLESTEROL 226(H) <=200 mg/dL TB HDL CHOLESTEROL 58 40 - 60 mg/dL TB Comment: > or =60 mg/dl - LOW CARDIOVASCULAR RISK <40 mg/dl - HIGH CARDIOVASCULAR RISK LDL CHOLESTEROL CALCULATED 137.0 mg/dL TB Comment: <100 mg/dl OPTIMAL 100-129 mg/dl NEAR OR ABOVE OPTIMAL 130-159 mg/dl BORDERLINE HIGH 160-189 mg/dl HIGH >190 mg/dl VERY HIGH VLDL CHOLESTEROL 31.2 mg/dL TB CHOL HDL RATIO 3.9 TB Comment: 3.3 - 4.4 LOW RISK 4.4 - 7.1 AVERAGE RISK 7.1 - 11.0 MODERATE RISK >11.0 HIGH RISK 12/08/2024 10:2 5 AM EDT 12/08/2024 10:31 AM EDT Narrative CLINISYNC - 12/08/2024 11:09 AM EDT us Napoleon Alegre MD CLINIS[facility]NC Final Result [facility] * (ABNORMAL) ALL CBC WITH AUTO DIFF (12/08/2024 10:25 AM EDT) [facility] TB WBC 7.8 4.0 - 11.0 10 3/uL TBH TBH RBC 5.14 4.20 - 5.40 10 6/uL TBH TBH HGB 13.9 12.0 - 16.0 g/dL TBH TBH HCT 42.2 36.0 - 48.0 % TBH TBH MCV 82.1 81.0 - 99.0 fL TBH TBH MCH 27.0 26.7 - 34.0 pg TBH TBH MCHC 32.9 29.9 - 35.2 g/dL TBH TBH RDW 13.4 11.0 - 15.0 % TBH TBH PLT 431 150 - 450 10 3/uL TBH TBH MPV 9.1(L) 9.5 - 13.5 fL TBH NEUTROPHILS PERCENT AUTO 65.7 43.0 - 75.0 % TBH LYMPHOCYTES PERCENT AUTO 23.5 20.5 - 60.0 % TBH MONOCYTES PERCENT AUTO 8.5 1.7 - 12.0 % TBH TBH EO % 1.5 0.9 - 7.0 % TBH BASOPHILS PERCENT AUTO 0.5 0.2 - 2.0 % TBH IMMATURE GRANULOCYTES PCT AUTO 0.3 0.0 - 0.5 % TBH NEUTROPHILS ABSOLUTE AUTO 5.1 1.4 - 6.5 10 3/uL TBH LYMPHOCYTES ABSOLUTE AUTO 1.8 1.2 - 3.8 10 3/uL TBH MONOCYTES ABSOLUTE AUTO 0.7 0.3 - 0.8 10 3/uL TBH TBH EO # 0.1 0.0 - 0.7 10 3/uL TBH BASOPHILS ABSOLUTE AUTO 0.0 0.0 - 0.1 10 3/uL TBH IMMATURE GRANULOCYTES ABS AUTO 0.02 0.00 - 0.03 10 3/uL TBH 12/08/2024 10:2 5 AM EDT 12/08/2024 10:31 AM EDT Narrative CLINISYNC - 12/08/2024 10:37 AM EDT Napoleon STEWART Final Result Performing Organization Address [facility] Co de Phone Number PAT TB * (ABNORMAL) ALL BASIC METABOLIC PANEL (12/08/2024 10:25 AM EDT) SODIUM 138 136 - 145 mmol/L TBH POTASSIUM 3.2(L) 3.5 - 5.1 mmol/L TBH CHLORIDE 98 98 - 107 mmol/L TBH CARBON DIOXIDE 34.4(H) 21.0 - 32.0 mmol/L TBH ANION GAP 8.8 TBH GLUCOSE 122(H) 74 - 106 mg/dL TBH BLOOD UREA NITROGEN 18.0 7.0 - 18.0 mg/dL TBH CREATININE 0.75 0.55 - 1.02 mg/dL TBH TBH EGFR-AF [place] >60 >=60 mL/min/1.7 3m 2 TBH TBH EGFR-NON AF [place] >60 >=60 mL/min/1.7 3m 2 TBH BUN CREATININE RATIO 24.0 TBH CALCIUM 9.4 8.5 - 10.1 mg/dL TBH 12/08/2024 10:2 5 AM EDT 12/08/2024 10:31 AM EDT Narrative CLINGUANAKITONC - 12/08/2024 11:09 AM EDT Napoleon STEWART Final Result Performing Organization Address City/[facility] de Phone Number PAT TB * Bilateral screening mammogram with tomosynthesis (07/15/2023 3:22 PM EST) Anatomical Region Laterality Modality Breast Bilateral Mammography 07/23/2023 4:29 PM EST Impressions 07/26/2023 7:22 AM EST BIRADS 1 - Negative Follow-up: Routine Screening Mamm Board Certified Radiologists. Accredited by the ACR and FDA. MAMMOGRAPHY IS VERY IMPORTANT TO YOUR HEALTH. THE [place] [employer] GUIDELINES RECOMMEND THAT WOMEN 40 YEARS OF AGE AND OLDER SHOULD HAVE A MAMMOGRAM EVERY YEAR. A REMINDER LETTER WILL BE SENT AT THE APPROPRIATE TIME. THIS FACILITY UTILIZES A REMINDER SYSTEM TO ENSURE ALL PATIENTS RECEIVE REMINDER NOTIFICATIONS AT THE APPROPRIATE TIME BASED ON THE RECOMMENDATIONS OF THIS EXAM. THIS INCLUDES REMINDERS FOR ROUTINE SCREENING MAMMOGRAMS, DIAGNOSTIC MAMMOGRAMS IN WHICH THE PATIENT IS ASKED TO RETURN FOR ADDITIONAL VIEWS, OR OTHER BREAST IMAGING INTERVENTIONS WHEN APPROPRIATE. THE PATIENT WILL BE PLACED IN THE APPROPRIATE REMINDER SYSTEM INCLUDING A REMINDER AT THE APPROPRIATE TIME FOR ANY PENDING ADDITIONAL VIEWS. TRANSCRIBED BY: ELECTRONICALLY SIGNED BY: Leo Ac MD Narrative 07/26/2023 7:22 AM EST EXAMINATION: BI MAMMOGRAM SCREENING TOMOSYNTHESIS BILATERAL CLINICAL HISTORY:Screening COMPARISON: There are no previous mammograms available for comparison. RESULT: Digital mammography and 3D tomosynthesis of bilateral breasts was performed. Density: Scattered fibroglandular density [2] There is no suspicious mass, asymmetry, architectural distortion, or calcification. Procedure Note Leo Ac MD - 07/26/2023 EXAMINATION: BI MAMMOGRAM SCREENING TOMOSYNTHESIS BILATERAL CLINICAL HISTORY:Screening COMPARISON: There are no previous mammograms available for comparison. RESULT: Digital mammography and 3D tomosynthesis of bilateral breasts wasperformed. Density: Scattered fibroglandular density [2] There is no suspicious mass, asymmetry, architectural distortion, orcalcification. IMPRESSION: BIRADS 1 - Negative Follow-up: Routine Screening Mamm Board Certified Radiologists. Accredited by the ACR and FDA. MAMMOGRAPHY IS VERY IMPORTANT TO YOUR HEALTH. THE [place] CANC[employer] SOCIETYGUIDELINES RECOMMEND THAT WOMEN 40 YEARS OF AGE AND OLDER SHOULD HAVE AMAMMOGRAM EVERY YEAR. A REMINDER LETTER WILL BE SENT AT THE APPROPRIATE TIME. THIS FACILITYUTILIZES A REMINDER SYSTEM TO ENSURE ALL PATIENTS RECEIVE REMINDERNOTIFICATIONS AT THE APPROPRIATE TIME BASED ON THE RECOMMENDATIONS OF THISEXAM. THIS INCLUDES REMINDERS FOR ROUTINE SCREENING MAMMOGRAMS, DIAGNOSTICMAMMOGRAMS IN WHICH THE PATIENT IS ASKED TO RETURN FOR ADDITIONAL VIEWS,OR OTHER BREAST IMAGING INTERVENTIONS WHEN APPROPRIATE. THE PATIENT WILLBE PLACED IN THE APPROPRIATE REMINDER SYSTEM INCLUDING A REMINDER AT THEAPPROPRIATE TIME FOR ANY PENDING ADDITIONAL VIEWS. TRANSCRIBED BY: ELECTRONICALLY SIGNED BY: Leo Ac MD Napoleon Alegre MD IMG BI PROCEDURES Final Result from Last 3 Months or Most Recently Relevant to Health Maintenance Insurance [employer] MEDICARE [employer]VANTAGE Care Teams Wind Turbine Design Engineer Relationship Specialty Start Date End Date Napoleon Alegre MD [address] [place] [address] PCP - General Family Medicine 08/10/23
--- OUTSIDE RECORDS SUMMARY | 2024-12-11 09:33 | XMS_ITS | Encounter Summary ---
Author Organization [facility] Address [address] [place] [address] Care Team Providers Care Test Center Manager Name Role Phone Napoleon Alegre MD Primary Care Provider [phone] Encounter Details Date Type Department Care Team (Late st Contact Info) Description 12/08/2024 Clinisync Result Encounter [facility] External Department Unsolicited Napoleon Alegre MD [address] [place] [address] Social History Tobacco Use Types Packs/Day Years [...] 08/08/2024 How often do you attend chur ch or holiness services? More than 4 times per year 08/08/2024 Do you belong to any clubs o r organizations such as restoration groups, unions, fraternal or athletic groups, or [...] and heating? Not hard at all 08/08/2024 [facility] - Occupational Stress Questionnaire Answer [...] place to sleep or slept in a snf (including now)? No 07/06/2023 Housing Stability Vital Sign Answer Gilbert e Recorded In the last 12 months, was t here a time when you were not able to pay the mortgage or rent on time? No 08/08/2024 In the past 12 months, how m any times have you moved where you were living? 0 08/08/2024 At any time in the past [address] [facility], were you homeless or living in a snf (including now)? No 08/08/2024 Comments Unknown Sex [...] Office Visit [facility] [address] [place] [phone] Napoleon Alegre MD [address] [place] [address] documented as of this encounter Procedures Procedure Name Priority Date/Time Associated Diagnosis Comments [facility] LIVER PANEL Routine 12/08/2024 10:2 5 AM EDT ALL THYROID STIM HORMONE Routine 12/08/2024 10:25 AM EDT ALL LIPID PROFILE (FASTING) Routine 12/08/2024 10:25 AM EDT ALL CBC WITH AUTO DIFF Routine 12/08/2024 10:25 AM EDT ALL BASIC METABOLIC PANEL Routine 12/08/2024 10:25 AM EDT documented in this encounter Results * ALL THYROID STIM HORMONE (12/08/2024 10:25 AM EDT) THYROID STIMULATING HORMONE 1.659 0.358 - 3.740 uIU/mL TBH 12/08/2024 10:2 5 AM EDT 12/08/2024 10:31 AM EDT Narrative CLINISYNC - 12/08/2024 11:09 AM EDT Napoleon Alegre MD CLINISYNC Final Result [facility] * (ABNORMAL) ALL LIPID PROFILE (FASTING) (12/08/2024 [...] CLINISYNC - 12/08/2024 11:09 AM EDT Napoleon Alegre MD CLINISYNC Final Result Performing Organization Address City/[facility] Co de Phone Number CLINISYNC [facility] * (ABNORMAL) ALL BASIC METABOLIC PANEL (12/08/2024 [...] 0.55 - 1.02 mg/dL TBH TBH EGFR-AF CZECH >60 >=60 mL/min/1.7 3m 2 TBH TBH EGFR-NON AF CZECH >60 >=60 mL/min/1.7 3m 2 TBH BUN CREATININE RATIO 24.0 TBH CALCIUM 9.4 8.5 - 10.1 mg/dL TBH 12/08/2024 10:2 5 AM EDT 12/08/2024 10:31 AM EDT Narrative CLINISYNC - 12/08/2024 11:09 AM EDT Napoleon Alegre MD CLINISYNC Final Result Performing Organization Address City/[facility]/ZIP Co de Phone Number [facility]IS[facility]NC [facility] * [facility] LIVER PANEL (12/08/2024 10:25 AM EDT) BILIRUBIN [...] us Napoleon Alegre MD CLINISYNC Final Result [facility] * (ABNORMAL) ALL CBC WITH AUTO DIFF (12/08/2024 10:25 AM EDT) TB WBC 7.8 4.0 - 11.0 10 [...] CLINISYNC - 12/08/2024 10:37 AM EDT Napoleon Alegre MD [facility] documented in this encounter Visit Diagnoses Not on filedocumented in this encounter Care Teams Test Center Manager Relationship Specialty Start Date End Date Napoleon Alegre MD [address] [place] [address] PCP - General Family Medicine 08/10/23 documented as of this encounter
--- OUTSIDE RECORDS SUMMARY | 2024-12-11 09:33 | XMS_ITS | Encounter Summary ---
Author Organization [facility] Address [address] [place] [address] Care Team Providers Care Academic Services Coordinator Name Role Phone Napoleon Alegre MD Primary Care Provider [phone] Encounter Details Date Type Department Care Team (Late st Contact Info) Description 12/08/2024 Orders Only [facility] [address] [place] [address] Napoleon Alegre MD [address] [place] [address] Social History Tobacco Use Types Packs/Day Years [...] How often do you attend chur or worship services? More than 4 times per year 08/08/2024 Do you belong to any clubs o r organizations such as scientologist groups, unions, fraternal or athletic groups, or [...] and heating? Not hard at all 08/08/2024 [facility] - Occupational [...] place to sleep or slept in a custodial (including now)? No 07/06/2023 Housing Stability Vital Sign Answer Gilbert e Recorded In the last 12 months, was t here a time when you were not able to pay the mortgage or rent on time? No 08/08/2024 In the past 12 months, how m any times have you moved where you were living? 0 08/08/2024 At any time in the past 12 m [facility], were you homeless or living in a custodial (including now)? No 08/08/2024 Comments Unknown Sex [...] Visit [facility] [address] [place] [address] Napoleon Alegre MD [address] [place] [address] documented as of this encounter Visit Diagnoses Not on filedocumented in this encounter Care Teams Academic Services Coordinator Relationship Specialty Start Date End Date Napoleon Alegre MD [address] [place] [phone] PCP - General Family Medicine 08/10/23 documented as of this encounter
--- OUTSIDE RECORDS SUMMARY | 2024-12-11 09:48 | XMS_ITS | CCD ---
Author Organization [facility] Inform ion Partnership [facility] [place] [facility] Care Team Providers Care Analytic Programmer Name Role Phone DR CLIVE RINCON Attending Unavailable MCKENZIE, DR CLIVE Phipps Consulting Unavailable DR CLIVE RINCON Primary Care Unavailable DR CLIVE RINCON Admitting CLIVE Quarles Attending Unavailable CLIVE RINCON Attending Unavailable MCKENZIE, CLIVE Attending Unavailable Clive Rincon MD Primary Care Provider Allergies Allergy Classification Reported Allergen(s) Allergy Type Date of Onset Reaction(s) Facility (4 sources) Lisinopril Propensity to adverse reactions 4 [facility] Medications Current Medications Medication Drug Class(es) Dates Sig (Normalized) Sig (Original) hydroCHLOROthiazide 25 mg oral tablet (5 sources) Thiazide Diuretic Start: take 1 tablet by mouth once daily hydroCHLOROthiazide (HYDRODiuril) 25 MG tablet Indications: Essential hypertension, benign TAKE 1 TABLET BY MOUTH DAILY 90 tablet 2 12/04/2024 Active Start: 03-08-2024 take 1 tablet by morgan th once daily hydroCHLOROthiazide (HYDRODiuril) 25 MG tablet Indications: Essential hypertension, benign (CMS/HCC) TAKE 1 TABLET BY MOUTH DAILY 90 tablet 2 03/08/2024 Active Start: 01-05-2024 Hydrochlorothi azide Active MG PO January 05, 2024 12:00am losartan potassium 50 mg oral tablet (5 sources) Angiotensin 2 Receptor Helen Start: 06-08-2024 take 1 tablet by mouth in the morning losartan (Cozaar) 50 MG tablet Indications: Essential hypertension, benign TAKE 1 TABLET BY MOUTH IN THE MORNING 90 tablet 3 06/08/2024 Active Start: 01-05-2024 Losartan Activ e MG PO January 05, 2024 12:00am Problems Active Problems Problem Classification Problem Date Documented Da te Episodic/Chronic Anxiety disorders (6 sources) Generalized anxiety disorder; Translations: [Generalized anxiety disorder] Onset: 07-13-2023 07-13-2023 Chronic Disorders of lipid metabolism (6 sources) Dyslipidemia; Translations: [Hyperlipidemia, unspecified] Onset: 07-13-2023 07-13-2023 Chronic Essential hypertension (7 sources) Hypertensive disorder; Translations: [Essential (primary) hypertension] Onset: 07-13-2023 01-05-2024 Chronic Other nutritional; endocrine; and metabolic disorders (1 source) Body mass index 30+ - obesity; Translations: [Obesity, unspecified] Onset: 07-13-2023 07-13-2023 Chronic Other nutritional; endocrine; and metabolic disorders (5 sources) Obesity caused by energy imbalance; Translations: [Class 1 obesity due to excess calories with serious comorbidity and body mass index (BMI) of 30.0 to 30.9 in adult] Onset: 07-13-2023 08-08-2024 Chronic Other screening for suspected conditions (not mental disorders or infectious disease) (2 sources) Patient encounter status; Translations: [Encounter for screening mammogram for malignant neoplasm of breast] 08-08-2024 Episodic Past or Other Problems Problem Classification Problem Date Documented Da te Episodic/Chronic Other aftercare (6 sources) Long-term current use of drug therapy; Translations: [Other skilled nursing (current) drug therapy] Onset: 07-13-2023 07-13-2023 Episodic Results Test Name Value Interpretation Reference Range Facility ALL CBC WITH AUTO DIFFon BASOPHILS ABSOLUTE AUTO 0 [facility] Basophils/100 WBC (Bld) 0.5 % 0.2 - 2.0 % [facility] Eosinophils/100 WBC (Bld) 1.5 % 0.9 - 7.0 % [facility] Erythrocyte distribution width (RBC) [Ratio] 13.4 % 11.0 - 15.0 % [facility] Hematocrit (Bld) [Volume fraction] 42.2 % 36.0 - 48.0 % [facility] Hemoglobin (Bld) [Mass/Vol] 13.9 g/dL 12.0 - 16.0 g/dL [facility] IMMATURE GRANULOCYTES ABS AUTO 0.02 [facility] Immature granulocytes/100 WBC (Bld) 0.3 % 0.0 - 0.5 % [facility] Interpretation and review of laboratory results Abnormal [facility] LYMPHOCYTES ABSOLUTE AUTO 1.8 [facility] Lymphocytes/100 WBC (Bld) 23.5 % 20.5 - 60.0 % [facility] MCH (RBC) [Entitic mass] 27 pg 26.7 - 34.0 pg [facility] MCHC (RBC) [Mass/Vol] 32.9 g/dL 29.9 - 35.2 g/dL [facility] MCV (RBC) [Entitic vol] 82.1 fL 81.0 - 99.0 fL [facility] MONOCYTES ABSOLUTE AUTO 0.7 [facility] Monocytes/100 WBC (Bld) 8.5 % 1.7 - 12.0 % [facility] NEUTROPHILS ABSOLUTE AUTO 5.1 [facility] Neutrophils/100 WBC (Bld) 65.7 % 43.0 - 75.0 % [facility] Platelet mean volume (Bld) [Entitic vol] 9.1 fL Low 9.5 - 13.5 fL [facility] are TBH EO # 0.1 [facility] TB PLT 431 [facility] TB RBC 5.14 [facility] TBH WBC 7.8 [facility] e [facility] CBC AUTO DIFFon 12-09-2021 BASO # 0.0 103/ul Normal 0.0-0.1 [facility] Comment on above: Performed By: #### C BC #### [facility] [address] [address] [address] Leah Cross Basophils/100 WBC (Bld) 0.6 % Normal 0.2-2.0 [facility] Comment on above: Performed By: #### C BC #### [facility] [address] [address] [address] Leah Cross EO # 0.1 103/ul Normal 0.0-0.7 [facility] Comment on above: Performed By: #### C BC #### [facility] [address] [address] [address] Leah Cross Eosinophils/100 WBC (Bld) 1.1 % Normal 0.9-7.0 [facility] Comment on above: Performed By: #### C BC #### [facility] [address] [place] [address] Dr. Leah Cross Erythrocyte distribution width (RBC) [Ratio] 12.2 % Normal 11.0-15.0 [facility] Comment on above: Performed By: #### C BC #### [facility] [address] [place] [address] Dr. Leah Corss Hematocrit (Bld) [Volume fraction] 44.8 % Normal 36.0-48.0 [facility] Comment on above: Performed By: #### C BC #### [facility] [address] [place] [address] Dr. Leah Cross Hemoglobin (Bld) [Mass/Vol] 14.6 g/dL Normal 12.0-16.0 [facility] Comment on above: Performed By: #### C BC #### [facility] [address] [place] [address] Dr. Leah Cross IG # 0.02 10e3/ul Normal 0.00-0.03 [facility] Comment on above: Performed By: #### C BC #### [facility] [address] [place] [address] Dr. Leah Cross IG % 0.3 % Normal 0.0-0.5 [facility] Comment on above: Performed By: #### C BC #### [facility] [address] [place] [address] Dr. Leah Cross LYMPH # 2.5 103/ul Normal 1.2-3.8 [facility] Comment on above: Performed By: #### C BC #### [facility] [address] [place] [address] Dr. Leah Cross Lymphocytes/100 WBC (Bld) 35.2 % Normal 20.5-60.0 [facility] Comment on above: Performed By: #### C BC #### [facility] [address] [place] [address] Dr. Leah Cross MANUAL DIFF REQ NO Normal [facility] Comment on above: Performed By: #### C BC #### [facility] [address] [place] [address] Dr. Leah Cross MCH (RBC) [Entitic mass] 28.1 pg Normal 26.7-34.0 [facility] Comment on above: Performed By: #### C BC #### [facility] [address] [place] [address] Dr. Leah Cross MCHC (RBC) [Mass/Vol] 32.6 g/dL Normal 29.9-35.2 [facility] Comment on above: Performed By: #### C BC #### [facility] [address] [place] [address] Dr. Leah Cross MCV (RBC) [Entitic vol] 86.2 fL Normal 81.0-99.0 [facility] Comment on above: Performed By: #### C BC #### [facility] [address] [place] [address] Dr. Leah Cross MONO # 0.7 103/ul Normal 0.3-0.8 [facility] Comment on above: Performed By: #### C BC #### [facility] [address] [place] [address] Dr. Leah Cross Monocytes/100 WBC (Bld) 9.3 % Normal 1.7-12.0 [facility] Comment on above: Performed By: #### C BC #### [facility] [address] [place] [address] Dr. Leah Cross NEUT # 3.8 103/ul Normal 1.4-6.5 [facility] Comment on above: Performed By: #### C BC #### [facility] [address] [place] [address] Dr. Leah Cross Neutrophils/100 WBC (Bld) 53.5 % Normal 43.0-75.0 [facility] Comment on above: Performed By: #### C BC #### [facility] [address] [place] [address] Dr. Leah Cross Platelet mean volume (Bld) [Entitic vol] 9.6 fL Normal 9.5-13.5 [facility] Comment on above: Performed By: #### C BC #### [facility] [address] [place] [address] Dr. Leah Cross PLT 350 103/ul Normal 150-450 [facility] Comment on above: Performed By: #### C BC #### [facility] [address] [place] [address] Dr. Leah Cross RBC 5.20 106/ul Normal 4.20-5.40 [facility] Comment on above: Performed By: #### C BC #### [facility] [address] [address] [address] Leah Cross WBC 7.0 103/ul Normal 4.0-11.0 [facility] Comment on above: Performed By: #### C BC #### [facility] [address] [place] [address] Dr. Leah Cross GLYCOHEMOGLOBIN A1Con 2021 ADA RECOMMENDATION SEE BELOW Normal [facility] Comment on above: Result Comment: ADA RECOMMENDED LIMIT 4.0 - 6.0 ADA THERAPEUTIC TARGET < 7.0 ACTION SUGGESTED > 7.0 Performed By: #### A 1C #### [facility] [address] [place] [address] Dr. Leah Cross Glucose [Mass/Vol] 114 mg/dL Normal [facility] Comment on above: Performed By: #### A 1C #### [facility] [address] [place] [address] Dr. Leah Cross HbA1c (Bld) [Mass fraction] 5.6 % Normal 4.5-6.2 [facility] Comment on above: Performed By: #### A 1C #### [facility] [address] [place] [address] Dr. Leah Cross LIPID PROFILEon 12-09-2021 CHOL-HDL RATIO NORM SEE BELOW Normal [facility] Comment on above: Result Comment: 3.3 - 4.4 LOW RISK 4.4 - 7.1 AVERAGE RISK 7.1 - 11.0 MODERATE RISK >11.0 HIGH RISK Performed By: #### L IVER, LIPID, BMP, TSH #### [facility] [address] [place] [address] Dr. Leah Cross Cholesterol [Mass/Vol] 212 mg/dL Critically high <=200 [facility] Comment on above: Performed By: #### L IVER, LIPID, BMP, TSH #### [facility] [address] [address] [address] Leah Cross Cholesterol in HDL [Mass/Vol] 43 mg/dL Normal 40-60 [facility] Comment on above: Performed By: #### L IVER, LIPID, BMP, TSH #### [facility] [address] [address] [address] Leah Cross Cholesterol in LDL [Mass/Vol] 125.4 mg/dL Normal [facility] Comment on above: Performed By: #### L IVER, LIPID, BMP, TSH #### [facility] [address] [address] [address] Leah Cross Cholesterol.total/Cho lesterol in HDL [Mass ratio] 4.9 {ratio} Normal [facility] Comment on above: Performed By: #### L IVER, LIPID, BMP, TSH #### [facility] [address] [address] [address] Leah Cross HDL NORMAL > or = 60 mg/dl - LOW CARDIOVASCULAR RISK <40 mg/dl - HIGH CARDIOVASCULAR RISK Normal [facility] Comment on above: Performed By: #### L IVER, LIPID, BMP, TSH #### [facility] [address] [address] [address] Leah Cross LDL CALC NORMAL SEE BELOW Normal [facility] Comment on above: Result Comment: <100 mg/dl OPTIMAL 100 - 129 mg/dl NEAR OR ABOVE OPTIMAL 130 - 159 mg/dl BORDERLINE HIGH 160 - 189 mg/dl HIGH >190 mg/dl VERY HIGH Performed By: #### L IVER, LIPID, BMP, TSH #### [facility] [address] [address] [address] Leah Cross Triglyceride [Mass/Vol] 218 mg/dL Critically high <=150 [facility] Comment on above: Performed By: #### L IVER, LIPID, BMP, TSH #### [facility] [address] [address] [address] Leah Cross VLDL CALC 43.6 mg/dL Normal [facility] Comment on above: Performed By: #### L IVER, LIPID, BMP, TSH #### [facility] [address] [place] [address] Dr. Leah Cross LIVER PROFILEon 12-09-2021 Albumin [Mass/Vol] 3.6 g/dL Normal 3.4-5.0 [facility] Comment on above: Performed By: #### L IVER, LIPID, BMP, TSH #### [facility] [address] [place] [address] Dr. Leah Cross Albumin/Globulin [Mass ratio] 0.8 {ratio} Normal [facility] Comment on above: Performed By: #### L IVER, LIPID, BMP, TSH #### [facility] [address] [place] [address] Dr. Leah Cross ALP [Catalytic activity/Vol] 69 U/L Normal 46-116 [facility] Comment on above: Performed By: #### L IVER, LIPID, BMP, TSH #### [facility] [address] [place] [address] Dr. Leah Cross ALT [Catalytic activity/Vol] 25 U/L Normal 14-59 [facility] Comment on above: Performed By: #### L IVER, LIPID, BMP, TSH #### [facility] [address] [place] [address] Dr. Leah Cross AST [Catalytic activity/Vol] 26 U/L Normal 15-37 [facility] Comment on above: Performed By: #### L IVER, LIPID, BMP, TSH #### [facility] [address] [place] [address] Dr. Leah Cross BILI, CONJUGATED 0.1 mg/dL Normal 0.0-0.2 [facility] Comment on above: Performed By: #### L IVER, LIPID, BMP, TSH #### [facility] [address] [place] [address] Dr. Leah Cross Bilirubin [Mass/Vol] 0.4 mg/dL Normal 0.2-1.0 [facility] Comment on above: Performed By: #### L IVER, LIPID, BMP, TSH #### [facility] [address] [place] [address] Dr. Leah Cross Globulin (S) [Mass/Vol] 4.4 g/dL Normal [facility] Comment on above: Performed By: #### L IVER, LIPID, BMP, TSH #### [facility] [address] [place] [address] Dr. Leah Cross Protein [Mass/Vol] 8.0 g/dL Normal 6.4-8.[address] [facility] Comment on above: Performed By: #### L IVER, LIPID, BMP, TSH #### [facility] [address] [place] [address] Dr. Leah Cross PROF CHEM 8 (BAS METB)on Anion gap [Moles/Vol] 8.7 mmol/L Normal [facility] Comment on above: Performed By: #### L IVER, LIPID, BMP, TSH #### [facility] [address] [place] [address] Dr. Leah Cross Calcium [Mass/Vol] 9.3 mg/dL Normal 8.5-10.[address] [facility] Comment on above: Performed By: #### L IVER, LIPID, BMP, TSH #### [facility] [address] [place] [address] Dr. Leah Cross Chloride [Moles/Vol] 97 mmol/L Critically low 98-107 [facility] Comment on above: Performed By: #### L IVER, LIPID, BMP, TSH #### [facility] [address] [place] [address] Dr. Leah Cross CO2 [Moles/Vol] 33.9 mmol/L Critically high 21.0-32.0 [facility] Comment on above: Performed By: #### L IVER, LIPID, BMP, TSH #### [facility] [address] [place] [address] Dr. Leah Cross Creatinine [Mass/Vol] 0.85 mg/dL Normal 0.55-1.02 [facility] Comment on above: Performed By: #### L IVER, LIPID, BMP, TSH #### [facility] [address] [address] [address] Leah Cross EGFR-AF MONGOLIAN >60 Normal >=60 [facility] Comment on above: Performed By: #### L IVER, LIPID, BMP, TSH #### [facility] [address] [address] [address] Leah Cross EGFR-NON AF MONGOLIAN >60 Normal >=60 [facility] Comment on above: Performed By: #### L IVER, LIPID, BMP, TSH #### [facility] [address] [address] [address] Leah Cross Glucose [Mass/Vol] 98 mg/dL Normal 74-106 [facility] Comment on above: Performed By: #### L IVER, LIPID, BMP, TSH #### [facility] [address] [place] [address] Dr. Leah Cross Potassium [Moles/Vol] 3.6 mmol/L Normal 3.5-5.1 [facility] Comment on above: Performed By: #### L IVER, LIPID, BMP, TSH #### [facility] [address] [address] [address] Leah Cross Sodium [Moles/Vol] 136 mmol/L Normal 136-[address] [facility] Comment on above: Performed By: #### L IVER, LIPID, BMP, TSH #### [facility] [address] [address] [address] Leah Cross Urea nitrogen [Mass/Vol] 19.0 mg/dL Critically high 7.0-18.0 [facility] Comment on above: Performed By: #### L IVER, LIPID, BMP, TSH #### [facility] [address] [place] [address] Dr. Leah Cross Urea nitrogen/Creatinine [Mass ratio] 22.4 mg/mg Normal [facility] Comment on above: Performed By: #### L IVER, LIPID, BMP, TSH #### [facility] [address] [place] [address] Dr. Leah Cross TSHon 12-09-2021 TSH 0.984 uIU/mL Normal 0.358-3.740 [facility] Comment on above: Performed By: #### L IVER, LIPID, BMP, TSH #### [facility] [address] [address] [address] Leah Cross Vital Signs Date Time Vital Sign Value Performing Clinician Facility 08-08-2024 09:08-0500 Body height 167.6 cm Clive Rincon MD Work Phone: [facility] 08-08-2024 09:08-0500 Body mass index (BMI) [Ratio] 30.02 kg/m2 Clive Rincon MD Work Phone: [facility] 08-08-2024 09:08-0500 Body temperature 97.11 [degF] Clive Rincon MD Work Phone: [facility] 08-08-2024 09:08-0500 Body weight 84.37 kg Clive iRncon MD Work Phone: [facility] 08-08-2024 09:08-0500 Diastolic blood pressure 60 mm[Hg] Clive Rincon MD Work Phone: [facility] 08-08-2024 09:08-0500 Heart rate 96 /min Clive Rincon MD Work Phone: [facility] 08-08-2024 09:08-0500 Respiratory rate 20 /min Clive Rincon MD Work Phone: [facility] 08-08-2024 09:08-0500 SaO2% (BldA) [Mass fraction] 92 % Clive Rincon MD Work Phone: [facility] 08-08-2024 09:08-0500 Systolic blood pressure 106 mm[Hg] Clive Rincon MD Work Phone: [facility] 01-05-2024 18:30-0400 Body height 167.64 cm [facility] 01-05-2024 18:30-0400 Body mass index (BMI) [Ratio] 29 kg/m2 [facility] 01-05-2024 18:30-0400 Body temperature 98.1 [degF] [facility] 01-05-2024 18:30-0400 Body weight 81.64 kg [facility] 01-05-2024 18:30-0400 Diastolic blood pressure 100 mm[Hg] [facility] 01-05-2024 18:30-0400 Heart rate 97 /min [facility] 01-05-2024 18:30-0400 Respiratory rate 16 /min [facility] 01-05-2024 18:30-0400 SaO2% (BldA) [Mass fraction] 96 % [facility] 01-05-2024 18:30-0400 Systolic blood pressure 154 mm[Hg] [facility] Encounters Encounter Date Encounter Type Care Provider Facility Start: 12-08-2024 End: 12-08-2024 [facility] Result Encounter Clive Rincon MD Work Phone: [facility] Unsolicited Start: 12-08-2024 End: 12-08-2024 [facility] Result Encounter Clive Rincon MD Work Phone: [facility] Unsolicited Start: 08-08-2024 End: 08-08-2024 Bamboo flowsheet Clive Rincon MD Work Phone: [facility] Start: 08-08-2024 End: 08-08-2024 Bamboo flowsheet Clive Rincon MD Work Phone: [facility] Start: 08-08-2024 End: 08-08-2024 Office outpatient visit 15 minutes Clive Rincon MD Work Phone: [facility] Comment on above: Essential hypertensi on, [...] Not Available Start: 01-05-2024 End: 01-05-2024 ambulatory [facility] Work Phone: Start: 01-05-2024 End: 01-05-2024 Patient encounter procedure [facility] Work Phone: Start: 08-10-2023 Manual pelvic examination Clive Rincon MD Work Phone: [facility] Start: 08-10-2023 End: 08-10-2023 ambulatory CLIVE RINCON Not Available Start: 12-11-2021 Encounter for genera l adult medical examination without abnormal findings DR CLIVE RINCON [facility] Start: 12-09-2021 End: 12-10-[address] CLIVE RINCON Facility:[facility] Start: 12-09-2021 End: 12-10-2021 Encounter for general adult medical examination without abnormal findings DR CLIVE RINCON Facility:[facility] Procedures Date Procedure Procedure Detail Performing Clinician Start: 12-08-2024 ALL CBC WITH AUTO DIFF Clive Rincon MD Work Phone: Start: 07-26-2023 Mammography Clive garay MD Work Phone: Plan of Treatment Date Care Activity Detail Author Start: 07-19-2026 Screening for malign ant neoplasm of colon [facility] Start: 02-19-2025 Influenza vaccination Influenz a Vaccine (Season Ended) [facility] Start: 02-06-2025 End: 02-06-2025 Patient encounter procedure 02/06/2025 9:00 AM EDT Office Visit [facility] [address] [place] [address] Clive Rincon MD [address] [place] [address] [facility] Start: 08-08-2024 End: 08-08-2025 Basic metabolic 1998 panel - Serum or Plasma Basic metabolic panel Lab Routine Essential hypertension, benign (CMS/HCC) Expected: 08/08/2024 (Approximate), Expires: 08/08/2025 [facility] Work Phone: Comment on above: Expected: 08/08/2024 (Approximate), Expires: 08/08/2025 Start: 08-08-2024 End: 08-08-2025 CBC W Auto Differential panel - Blood CBC and differential Lab Routine Encounter for long-term (current) use of medications Expected: 08/08/2024 (Approximate), Expires: 08/08/2025 [facility] Comment on above: Expected: 08/08/2024 (Approximate), Expires: 08/08/2025 Start: 08-08-2024 End: 08-08-2025 Hepatic function 2000 panel - Serum or Plasma Hepatic function panel Lab Routine Encounter for long-term (current) use of medications Expected: 08/08/2024 (Approximate), Expires: 08/08/2025 [facility] Comment on above: Expected: 08/08/2024 (Approximate), Expires: 08/08/2025 Start: 08-08-2024 End: 08-08-2025 Lipid 1996 panel - Serum or Plasma Lipid panel Lab Routine Dyslipidemia (CMS/HCC) Expected: 08/08/2024 (Approximate), Expires: 08/08/2025 [facility] Comment on above: Expected: 08/08/2024 (Approximate), Expires: 08/08/2025 Start: 08-08-2024 End: 10-06-2025 MG Breast - bilateral Screening Bilateral screening mammogram Imaging Routine Breast cancer screening by mammogram Expected: 08/08/2024, Expires: 10/06/2025 [facility] Comment on above: Expected: 08/08/2024 , Expires: 10/06/2025 Start: 08-08-2024 End: 08-08-2025 Thyrotropin [Units/volume] in Serum or Plasma TSH Lab Routine Class 1 obesity due to excess calories with serious comorbidity and body mass index (BMI) of 30.0 to 30.9 in adult Expected: 08/08/2024 (Approximate), Expires: 08/08/2025 [facility] Comment on above: Expected: 08/08/2024 (Approximate), Expires: 08/08/2025 Start: 08-08-2024 End: 08-08-2024 Patient encounter procedure 08/08/2024 9:00 AM EST Office Visit [facility] [address] [place] [id number] Clive Rincon MD [address] [place] [address] Arrived [facility] Comment on above: Arrived Start: 07-26-2024 Screening for malign ant neoplasm of breast Mammogram [facility] Start: 02-20-2024 Influenza vaccination Influenza Vacc ine (#1) [facility] Start: 2023 Pneumococcal Vaccine : 65+ Years (1 of 1 - PCV) Pneumococcal Vaccine: 65+ Years (1 of 1 - PCV) [facility] Start: 02-27-2008 Pneumococcal Vaccine : 65+ Years (1 of 1 - PCV) Pneumococcal Vaccine: 65+ Years (1 of 1 - PCV) [facility] Start: 1960 Medicare Annual Wellness (AWV) Medicare Annual Wellness (AWV) [facility] Start: 1960 Screening for malign ant neoplasm of colon [facility] Healthcare Payers Date Payer Category Payer Medicaid [employer] MEDICARE A DVANTAGE [id number] 2023 Private Health Insurance [id number] 1961 Unknown [id number] 1960 Unknown [id number] 1960 Unknown [id number] 1960 Unknown [id number] 1960 Unknown [id number] Social History Date Type Detail Facility Tobacco smoking stat us MOIS Unknown if ever smoked [facility] Work Phone: Start: 1960 Sex Assigned At Female [facility] Start: 07-13-2023 Tobacco smoking status NHIS Never [...] Healthcare Start: 08-03-2023 Sexual orientation Heterosexual (finding) [facility] History of Present illness Narrative 08-08-2024 [...] Bilateral screening mammogram documented in this encounter [facility] Healthcare Evaluation note Note Date & Type Note Facility Evaluation note [facility] Evaluation note Note Date & Type Note Facility Evaluation note Diagnosis Essential hypertension, benign (CMS/HCC)- Primary Essential hypertension, benign YECENIA (generalized anxiety disorder) ([facility]/HCC) Generalized anxiety disorder Dyslipidemia (CMS/HCC) Other and [...] screening by mammogram documented in this encounter [facility] Summary Purpose Family History No Family History Records FoundNo Family History Records Found Advance Directives Advance Directive Response Recorded Date/ Time Advance Directives No January 04 6:21pm Chief Complaint and Reason for Visit Chief Complaint Cyst/abscess on back /shoulder Additional Source Comments INFORMATION SOURCE (unrecogn ized section and content) DATE CREATED AUTHOR 01/17/2022 [facility] DATE CREATED AUTHOR AUTHOR'S ORGANIZ ATION 08/09/2024 [facility] Care Teams (unrecognized sec tion and content) Team Status: Active Member Role Status Dates Clive Rincon MD Primary Care Provider Active Team Status: Inactive Member Role Status Dates Clive Rincon MD Primary Care Provider Active S tart: January 05, 2024 End: January 05, 2024 Fina Wilkins APRN Attending Provider Active Start: January 05, 2024 End: January 05, 2024 Analytic Programmer Relationship Specialty Start Date End Date Clive Rincon MD [address] [place] [address] PCP - General Family Medicine 08/10/23 Analytic Programmer Relationship Specialty Start Date End Date Clive Rincon MD [address] [place] [address] PCP - General Family Medicine 08/10/23 Analytic Programmer Relationship Specialty Start Date End Date Clive Rincon MD [address] [place] [address] PCP - General Family Medicine 08/10/23 [...] BE BASED ON THE PRIMARY CLINICAL RECORDS. [facility]. provides no warranty or guarantee of the accuracy or completeness of information in this document.
--- OUTSIDE RECORDS SUMMARY | 2024-12-11 10:07 | XMS_ITS | Encounter Summary ---
Author Organization [facility] Address [address] [place] [address] Care Team Providers Care Kiln Operator Name Role Phone Napoleon Alegre MD Primary Care Provider [phone] Encounter Details Date Type Department Care Team (Late st Contact Info) Description 12/08/2024 Clinisync Result Encounter [facility] External Department Unsolicited Napoleon Alegre MD [address] [place] [address] Social History Tobacco Use Types Packs/Day Years [...] often do you attend chur ch or mandaen services? More than 4 times per year 08/08/2024 Do you belong to any clubs o r organizations such as christian groups, unions, fraternal or athletic groups, or [...] and heating? Not hard at all 08/08/2024 [facility] Occupational Stress Questionnaire Answer [...] place to sleep or slept in a mcc (including now)? No 07/06/2023 Housing Stability Vital Sign Answer Gilbert e Recorded In the last 12 months, was t here a time when you were not able to pay the mortgage or rent on time? No 08/08/2024 In the past 12 months, how m any times have you moved where you were living? 0 08/08/2024 At any time in the past 12 m [facility], were you homeless or living in a mcc (including now)? No 08/08/2024 Comments Unknown Sex [...] Visit [facility] [address] [place] [phone] Napoleon Alegre MD [address] [place] [address] documented as of this encounter Procedures Procedure [...] EDT Napoleon Alegre MD CLIN[facility]YNC Final Result * (ABNORMAL) ALL LIPID PROFILE (FASTING) (12/08/2024 [...] MD CLINISYNC Final Result Performing Organization Address City/[facility] Co de Phone Number CLINISYNC [facility] [...] 0.55 - 1.02 mg/dL [facility]H [facility] EGFR-AF [place] >60 >=60 mL/min/1.7 3m 2 [facility] EGFR-NON AF [place] >60 >=60 mL/min/1.7 3m 2 [facility] BUN CREATININE RATIO 24.0 [facility] CALCIUM 9.4 8.5 - 10.1 mg/dL [facility] 12/08/2024 10:2 5 AM EDT 12/08/2024 10:31 AM EDT Narrative CLINISYNC - 12/08/2024 11:09 AM EDT Napoleon Alegre MD CLINISYNC Final Result Performing Organization Address City/[facility]/ZIP Co de Phone Number CLINISYNC [facility] [...] Napoleon Alegre MD CLINISYNC Final Result CLINIS[facility]NC [facility] * (ABNORMAL) ALL CBC WITH AUTO DIFF [...] EDT Napoleon Alegre MD [facility] documented in this encounter Visit Diagnoses Not on filedocumented in this encounter Care Teams Kiln Operator Relationship Specialty Start Date End Date Napoleon Alegre MD [address] [place] [address] PCP - General Family Medicine 08/10/23 documented as of this encounter
--- OUTSIDE RECORDS SUMMARY | 2024-12-11 10:07 | XMS_ITS | Clinical Summary ---
Author Organization [facility] Healthcare Address [address] [place] [address] Care Team Providers Care Veneer Clipper Name Role Phone Napoleon Alegre MD Primary Care Provider [phone] Allergies Active Allergy Reactions Criticality Noted Date [...] Care Team Description 12/08/2024 Results Follow-Up [facility] [address] [place] [address] Napoleon Alegre MD Prediabetes (Primary Dx); Hypokalemia 12/08/2024 Orders Only [facility] [address] [place] [address] Napoleon Alegre MD 12/08/2024 Clinisync Result Encounter [facility] External Department Unsolicited Napoleon Alegre MD 12/02/2024 Refill [facility] [address] [place] [address] Napoleon Alegre MD Essential hypertension, benign [...] week 08/08/2024 How often do you attend [facility] or scientology services? More than 4 times per year 08/08/2024 Do you belong to any clubs o r organizations such as buddhism groups, unions, fraternal or athletic groups, or [...] and heating? Not hard at all 08/08/2024 [facility] of Occupat ional Health - Occupational Stress [...] place to sleep or slept in a long-term (including now)? No 07/06/2023 Housing Stability Vital Sign Answer Glibert e Recorded In the last 12 months, was t here a time when you were not able to pay the mortgage or rent on time? No 08/08/2024 In the past 12 months, how m any times have you moved where you were living? 0 08/08/2024 At any time in the past 12 m [facility], were you homeless or living in a long-term (including now)? No 08/08/2024 Comments Unknown Sex [...] Visit [facility] [address] [place] [address] Napoleon Alegre MD [address] [place] [address] Health Maintenance Due Date Last Done Comments [...] METABOLIC PANEL Routine 12/08/2024 10:25 AM EDT [facility] LIVER PANEL Routine 12/08/2024 10:2 5 AM EDT ALL CBC WITH AUTO DIFF Routine 10:25 AM EDT BI MAMMOGRAM SCREENING TOMOSYNTHESIS BILATERAL Routine 07/15/2023 3:22 PM EST Breast cancer screening by mammogram from Last 3 Months or Most Recently Relevant to Health Maintenance Results * [facility] LIVER PANEL (12/08/2024 10:25 AM [...] Napoleon ALEJANDROISYNHI Final Result Performing Organization Address [facility]/ZIP Co de Phone Number [facility] * ALL THYROID STIM HORMONE (12/08/2024 10:25 AM EDT) THYROID STIMULATING HORMONE 1.659 0.358 - 3.740 uIU/mL TB 12/08/2024 10:2 5 AM EDT 12/08/2024 10:31 AM EDT Narrative CLINISYNC - 12/08/2024 11:09 AM EDT Napoleon ALEJANDROISYNHI Final Result Performing Organization Address [facility] de Phone Number [facility] * (ABNORMAL) ALL LIPID PROFILE (FASTING) [...] us Napoleon Alegre MD CLINISYNC Final Result [facility] * (ABNORMAL) ALL CBC WITH AUTO DIFF (12/08/2024 10:25 AM EDT) [facility] TB WBC 7.8 4.0 - 11.0 10 [...] CLINISYNC - 12/08/2024 10:37 AM EDT Napoleon STEAWRT Final Result Performing Organization Address City/[facility] Co de Phone Number PAT TB * [...] Napoleon STEWART Final Result Performing Organization Address City/[facility] de Phone Number PAT TB * Bilateral [...] Maintenance Insurance AETNA MEDICARE ADVANTAGE Care Teams Veneer Clipper Relationship Specialty Start Date End Date Napoleon Alegre MD [address] [place] [address] PCP - General Family Medicine 08/10/23
--- OUTSIDE RECORDS SUMMARY | 2024-12-11 10:07 | XMS_ITS | Encounter Summary ---
Author Organization [facility] Address [address] [place] [address] Care Team Providers Care Animal Anatomy Teacher Name Role Phone Napoleon Alegre MD Primary Care Provider [phone] Reason for Visit * Reason Comments Med Refill Encounter Details Date Type Department Care Team (Late st Contact Info) Description 12/02/2024 [facility] [address] [place] [address] Napoleon Alegre MD [address] [place] [address] Essential hypertension, benign Social History Tobacco Use Types Packs/Day Years [...] How often do you attend chur or spiritism services? More than 4 times per year 08/08/2024 Do you belong to any clubs o r organizations such as adventism groups, unions, fraternal or athletic groups, or [...] and heating? Not hard at all 08/08/2024 [facility] Occupat ional Health - [...] place to sleep or slept in a intermediate (including now)? No 07/06/2023 Housing Stability Vital Sign Answer Gilbert e Recorded In the last 12 months, was t here a time when you were not able to pay the mortgage or rent on time? No 08/08/2024 In the past 12 months, how m any times have you moved where you were living? 0 08/08/2024 At any time in the past 12 m [facility], were you homeless or living in a intermediate (including now)? No 08/08/2024 Comments Unknown Sex and Gender Information Value Date Recorded Sex Assigned at Female 08/03/2023 10:50 AM EST Legal Sex Female 7:04 PM EDT Gender Identity Female 08/03/2023 10:50 AM EST Sexual Orientation Straight 08/03/2023 10 :50 AM EST documented as of this encounter Miscellaneous Notes * Telephone Encounter - JUSTYN CALLEJAS - 12/04/2024 10:52 AM EDT [facility] documented in this encounter Plan of Treatment Upcoming Encounters Date Type Department Care Team (Late st Contact Info) Description 02/06/2025 9:00 AM EDT Office Visit [facility] [address] [place] [address] Napoleon Alegre MD [address] [place] [address] documented as of this encounter Visit Diagnoses Diagnosis Essential hypertension, benign Essential hypertension, benign documented in this encounter Care Teams Animal Anatomy Teacher Relationship Specialty Start Date End Date Napoleon Alegre MD [address] [place] [address] PCP - General Family Medicine 08/10/23 documented as of this encounter
--- OUTSIDE RECORDS SUMMARY | 2024-12-11 10:07 | XMS_ITS | Encounter Summary ---
Author Organization [facility] Address [address] [place] [address] Care Team Providers Care Eyelet Operator Name Role Phone Napoleon Alegre MD Primary Care Provider [phone] Encounter Details Date Type Department Care Team (Late st Contact Info) Description 12/08/2024 Orders Only [facility] [address] [place] [address] Napoleon Alegre MD [address] [place] [address] Social History Tobacco Use Types Packs/Day Years [...] How often do you attend chur or restorationist services? More than 4 times per year 08/08/2024 Do you belong to any clubs o r organizations such as tenriism groups, unions, fraternal or athletic groups, or [...] and heating? Not hard at all 08/08/2024 [facility] of Occupat ional Health - Occupational [...] any time in the past 12 m [facility], were you homeless or living [...] Visit [facility] [address] [place] [address] Napoleon Alegre MD [address] [place] [address] documented as of this encounter Visit Diagnoses Not on filedocumented in this encounter Care Teams Eyelet Operator Relationship Specialty Start Date End Date Napoleon Alegre MD [address] [place] [address] PCP - General Family Medicine 08/10/23 documented as of this encounter
--- OUTSIDE RECORDS SUMMARY | 2024-12-11 10:08 | XMS_ITS | Encounter Summary ---
Author Organization [facility] Address [address] [place] [address] Care Team Providers Care Client Service Consultant Name Role Phone Napoleon Alegre MD Primary Care Provider [phone] Encounter Details Date Type Department Care Team (Late st Contact Info) Description 12/08/2024 Results Follow-Up [facility] [address] [place] [address] Napoleon Alegre MD [address] [place] [address] Prediabetes (Primary Dx); Hypokalemia Social History Tobacco [...] How often do you attend chur or zoroastrianism services? More than 4 times per year [...] and heating? Not hard at all 08/08/2024 [facility] of Occupat ional Health - [...] place to sleep or slept in a long term (including now)? No 07/06/2023 Housing Stability Vital Sign Answer Gilbert e Recorded In the last 12 months, was t here a time when you were not able to pay the mortgage or rent on time? No 08/08/2024 In the past 12 months, how m any times have you moved where you were living? 0 08/08/2024 At any time in the past 12 m [facility], were you homeless or living in a long term (including now)? No 08/08/2024 Comments Unknown Sex [...] Office Visit [facility] [address] [place] [address] Napoleon Alegre MD [address] [place] [address] Scheduled Orders Name Type Priority Associated Diagnoses Orde r Schedule Hemoglobin A1c Lab Routine Prediabetes Expected: 12/08/2024 (Approximate), Expires: 12/08/2025 documented as of this encounter Visit Diagnoses Diagnosis Prediabetes- Primary Other abnormal glucose Hypokalemia Hypopotassemia documented in this encounter Care Teams Client Service Consultant Relationship Specialty Start Date End Date Napoleon Alegre MD [address] [place] [address] PCP - General Family Medicine 08/10/23 documented as of this encounter
[2024-12-11 10:21] LABS: Estimated Average Glucose 114 mg/dL; Glycohemoglobin A1C 5.6 % (4.5-6.2)
== END 2024-12-08 10:06 | disposition home or self-care (01) ==
LOC: LAB 12-11 10:05
PROVIDERS: PCP Family Medicine; Visit Provider Family Medicine
DX: R73.03 Prediabetes (principal); I10 Essential (primary) hypertension; E66.811 Obesity, class 1; E66.09 Other obesity due to excess calories; Z68.30 Body mass index [BMI] 30.0-30.9, adult; E78.5 Hyperlipidemia, unspecified; Z79.899 Other long term (current) drug therapy
CPT/HCPCS: 36415; 80048; 80061; 80076; 83036; 84443; 85025

== ENCOUNTER 2024-12-25 15:36 | Outpatient (OUT) | payer MEDICARE, SELFPAY ==
--- NOTE | 2024-12-25 | XR_ITS ---
[address] [address] Patient Name: ZELALEM CAMPBELL MRN: [id number] date: 1960 Sex: F Assigned Patient Location: [facility] Current Patient Location: [facility] Accession/Order Number: [id number] Exam Date: 12/25/2024 16:42 Report Date: 12/25/2024 16:43 At the request of: CLIVE RICNON MD Procedure: XR shoulder RT min 2V 2 views right humerus plain film COMPARISON: None HISTORY: Acute right shoulder and humerus pain for 2 months. No injury. Acute findings: None Degenerative change: Unremarkable Soft tissue findings: Unremarkable Joint effusion: None Postop changes: None XR/XR shoulder RT min 2V IMPRESSION:Unremarkable exam 3 views right shoulder Adequate alignment without acute displaced fracture. No significant degeneration or soft tissue abnormality. IMPRESSION: Unremarkable exam Impression dictated by: Yasmany Arias M.D. 12/25/2024 4:43 PM Dictation Location: [facility] Electronically authenticated by: [id number] Y Date: 12/25/2024 16:43
--- NOTE | 2024-12-25 | XR_ITS ---
The [address] [address] Patient Name: ZELALEM CAMPBELL MRN: [id number] date: 1960 Sex: F Assigned Patient Location: [facility] Current Patient Location: [facility] Accession/Order Number: [id number] Exam Date: 12/25/2024 16:42 Report Date: 12/25/2024 16:43 At the request of: CLIVE RINCON MD Procedure: XR shoulder RT min 2V 2 views right humerus plain film COMPARISON: None HISTORY: Acute right shoulder and humerus pain for 2 months. No injury. Acute findings: None Degenerative change: Unremarkable Soft tissue findings: Unremarkable Joint effusion: None Postop changes: None XR/XR humerus RT IMPRESSION:Unremarkable exam 3 views right shoulder Adequate alignment without acute displaced fracture. No significant degeneration or soft tissue abnormality. IMPRESSION: Unremarkable exam Impression dictated by: Yasmany Arias M.D. 12/25/2024 4:43 PM Dictation Location: [place] [address] Electronically authenticated by: [id number] Y Date: 12/25/2024 16:43
--- OUTSIDE RECORDS SUMMARY | 2024-12-25 13:49 | XMS_ITS ---
Author Name Auto Generated Organization [facility] Care Team Providers Care Loading Shovel Oiler Name Role Phone CLIVE RINCON Attending Unavailable CLIVE RINCON Attending Unavailable CLIVE RINCON Attending Unavailable PROBLEMS No Problem Records Found PROCEDURES No Procedure Records Found RESULTS No Result Records Found ALLERGIES No Allergies Records Found ENCOUNTERS ADMIT/DISCHARGE ACCOUNT NUMBER ADMITTING ENCOUNTER CLASS LOCATION SOURCE 12/25/2024/ 5 [id number] Ambulatory Building:[facility] 08/08/2024/ 5 [id number] Ambulatory Building:[facility] 02/03/2024/ 4 [id number] Ambulatory Building:[facility] EPIC PAYERS ENCOUNTER GUARANTOR PAYER SUBSCRIBER SOURCE 12/25/2024 ZELALEM CAMPBELLDOB: [place] [address]Ryo: () Primary Insurance:AETNA MEDICARE ADVANTAGEPolicy Number: [id number] Date:2023-02-19 ZELALEM Solomon WINGDOB: [id number] [place] [address] [facility] EPIC 08/08/2024 ZELALEM Solomon WINGDOB: [place], [place] [address]Xvw: () Primary Insurance:AETNA MEDICARE ADVANTAGEPolicy Number: [id number] Date:2023-02-19 ZELALEM Solomon WINGDOB: [id number] [place] [address] [facility] EPIC 02/03/2024 ZELALEM Solomon WINGDOB: [place], [place] [address]Ncv: () Primary Insurance:[facility]ITAL[facility] Number: [id number] Date:[id number] Name:SHERLYEL ANASTASIA [id number] TORRES [address]AK: ZELALEM Solomon WINGDOB: [id number] [place] [address] [facility] EPIC
== END 2024-12-25 15:37 | disposition home or self-care (01) ==
LOC: RAD 15:41
PROVIDERS: PCP Family Medicine; Visit Provider Family Medicine
DX: M79.601 Pain in right arm (principal)
CPT/HCPCS: 73030; 73060